=== PATIENT | male | born 1950 | race Caucasian/White ===

== ENCOUNTER → 2017-04-11 | Outpatient (CLI) | payer OTHER ==
[2013-07-26 09:49] VITALS: BP 117/70
[2017-04-11 10:23] LABS: ALANINE AMINOTRANSFERASE 18 Units/L (12-78); ALKALINE PHOSPHATASE 106 Units/L (46-116); ASPARTATE AMINO TRANSFERASE 14 Units/L (15-37); BLOOD UREA NITROGEN 24 mg/dL (7-18); CALCIUM 7.9 mg/dL (8.5-10.1); CARBON DIOXIDE 28.4 mmol/L (21-32); CHLORIDE 104 mmol/L (98-107); COR CA(FOR HYPOALB) 8.7 mg/dL (8.5-10.1); COR NA(FOR HYPERGLY) 142 mmol/L (136-145); CREATININE 1.05 mg/dL (0.70-1.30); GLUCOSE 180 mg/dL (65-99); SODIUM 140 mmol/L (136-145); TOTAL PROTEIN 6.4 g/dL (6.4-8.2); eGFR BLACK RACES > 60 (>60); eGFR NON BLACK RACES > 60 (>60)
[2017-04-11 10:31] LABS: BASOPHILS % (AUTO) 0.7 % (0.2-1.0); EOSINOPHILS # (AUTO) 0.1 x10^3/uL (0.0-0.2); EOSINOPHILS % (AUTO) 0.9 % (0.9-2.9); LYMPHOCYTES # (AUTO) 0.9 X10^3/uL (1.3-2.9); LYMPHOCYTES % (AUTO) 15.2 % (21.0-51.0); MEAN CORPUSCULAR HEMOGLOBIN 33.2 pg (27.0-34.0); MEAN CORPUSCULAR HGB CONC 34.5 g/dL (33.0-35.0); MEAN CORPUSCULAR VOLUME 96.4 fL (80.0-100.0); MEAN PLATELET VOLUME 13.4 fL (7.4-11.0); MONOCYTES # (AUTO) 1.2 x10^3/uL (0.3-0.8); MONOCYTES % (AUTO) 18.9 % (0.0-13.0); NEUTROPHILS % (AUTO) 64.3 % (42.0-75.0); PLATELET COUNT 34 X10^3/uL (150.0-450.0); RED CELL DISTRIBUTION WIDTH 16.8 % (11.6-16.5); WHITE BLOOD COUNT 6.2 X10^3/uL (3.6-10.0)
[2017-04-11 10:47] LABS: HEMOGLOBIN 6.6 g/dL (13.5-18.0)
[2017-04-11 10:48] LABS: HEMATOCRIT 19.3 % (42.0-54.0)
[2017-04-11 11:05] LABS: BAND NEUTROPHILS % 5 % (0-10)
[2017-04-11 11:08] LABS: HYPOCHROMASIA 1+; PLATELET MORPHOLOGY COMMENT ABNORMAL (NORMAL)
[2017-04-11 11:10] LABS: ANISOCYTOSIS 1+; POIKILOCYTOSIS SLIGHT
== END ==
LOC: LAB 09:43
PROVIDERS: ATTEND Internal Medicine Medical Oncology
DX: D46.Z Other myelodysplastic syndromes (principal); Z79.01 Long term (current) use of anticoagulants
CPT/HCPCS: 36415; 80053; 85025; 85610

== ENCOUNTER → 2017-04-14 | Outpatient (CLI) | payer OTHER ==
[2013-07-26 09:49] VITALS: BP 117/70
[2017-04-14 09:53] LABS: BASOPHILS % (AUTO) 0.9 % (0.2-1.0); EOSINOPHILS # (AUTO) 0.1 x10^3/uL (0.0-0.2); EOSINOPHILS % (AUTO) 2.4 % (0.9-2.9); LYMPHOCYTES # (AUTO) 1.1 X10^3/uL (1.3-2.9); LYMPHOCYTES % (AUTO) 19.5 % (21.0-51.0); MEAN CORPUSCULAR HEMOGLOBIN 32.9 pg (27.0-34.0); MEAN CORPUSCULAR HGB CONC 34.8 g/dL (33.0-35.0); MEAN CORPUSCULAR VOLUME 94.7 fL (80.0-100.0); MEAN PLATELET VOLUME 11.4 fL (7.4-11.0); MONOCYTES # (AUTO) 1.5 x10^3/uL (0.3-0.8); MONOCYTES % (AUTO) 27.5 % (0.0-13.0); NEUTROPHILS # (AUTO) 2.8 x10^3/uL (2.2-4.8); NEUTROPHILS % (AUTO) 49.7 % (42.0-75.0); PLATELET COUNT 23 X10^3/uL (150.0-450.0); RED BLOOD COUNT 2.09 X10^6/uL (4.7-6.0); RED CELL DISTRIBUTION WIDTH 16.5 % (11.6-16.5); WHITE BLOOD COUNT 5.6 X10^3/uL (3.6-10.0)
[2017-04-14 10:00] LABS: ALANINE AMINOTRANSFERASE 21 Units/L (12-78); ALBUMIN 3.1 g/dL (3.4-5.0); ALKALINE PHOSPHATASE 96 Units/L (46-116); ASPARTATE AMINO TRANSFERASE 16 Units/L (15-37); BLOOD UREA NITROGEN 26 mg/dL (7-18); CALCIUM 7.9 mg/dL (8.5-10.1); CHLORIDE 106 mmol/L (98-107); COR CA(FOR HYPOALB) 8.6 mg/dL (8.5-10.1); COR NA(FOR HYPERGLY) 143 mmol/L (136-145); CREATININE 1.02 mg/dL (0.70-1.30); GLUCOSE 160 mg/dL (65-99); SODIUM 142 mmol/L (136-145); TOTAL PROTEIN 6.2 g/dL (6.4-8.2); eGFR BLACK RACES > 60 (>60); eGFR NON BLACK RACES > 60 (>60)
[2017-04-14 10:17] LABS: HEMOGLOBIN 6.9 g/dL (13.5-18.0)
[2017-04-14 10:18] LABS: HEMATOCRIT 19.8 % (42.0-54.0)
[2017-04-14 10:19] LABS: ANISOCYTOSIS 1+; BAND NEUTROPHILS % 3 % (0-10); HYPOCHROMASIA 1+; PLATELET MORPHOLOGY COMMENT NORMAL (NORMAL)
== END ==
LOC: LAB 09:23
PROVIDERS: ATTEND Internal Medicine Medical Oncology
DX: D46.Z Other myelodysplastic syndromes (principal)
CPT/HCPCS: 36415; 80053; 85025

== ENCOUNTER → 2017-05-02 | Outpatient (CLI) | payer OTHER ==
[2013-07-26 09:49] VITALS: BP 117/70
[2017-05-02 10:10] LABS: BASOPHILS # (AUTO) 0.1 X10^3/uL (0.0-0.1); EOSINOPHILS # (AUTO) 0.1 x10^3/uL (0.0-0.2); EOSINOPHILS % (AUTO) 0.8 % (0.9-2.9); NEUTROPHILS # (AUTO) 2.3 x10^3/uL (2.2-4.8)
[2017-05-02 10:13] LABS: ALANINE AMINOTRANSFERASE 18 Units/L (12-78); ALBUMIN 2.7 g/dL (3.4-5.0); ALKALINE PHOSPHATASE 105 Units/L (46-116); ASPARTATE AMINO TRANSFERASE 14 Units/L (15-37); BLOOD UREA NITROGEN 26 mg/dL (7-18); CALCIUM 7.3 mg/dL (8.5-10.1); CARBON DIOXIDE 29.2 mmol/L (21-32); CHLORIDE 110 mmol/L (98-107); COR CA(FOR HYPOALB) 8.3 mg/dL (8.5-10.1); COR NA(FOR HYPERGLY) 144 mmol/L (136-145); CREATININE 1.34 mg/dL (0.70-1.30); GLUCOSE 156 mg/dL (65-99); SODIUM 143 mmol/L (136-145); TOTAL PROTEIN 5.6 g/dL (6.4-8.2); eGFR BLACK RACES > 60 (>60); eGFR NON BLACK RACES 56 (>60)
[2017-05-02 10:14] LABS: BASOPHILS % (AUTO) 0.5 % (0.2-1.0); HEMATOCRIT 22.1 % (42.0-54.0); HEMOGLOBIN 7.4 g/dL (13.5-18.0); LYMPHOCYTES # (AUTO) 1.2 X10^3/uL (1.3-2.9); LYMPHOCYTES % (AUTO) 10.6 % (21.0-51.0); MEAN CORPUSCULAR HEMOGLOBIN 31.2 pg (27.0-34.0); MEAN CORPUSCULAR HGB CONC 33.4 g/dL (33.0-35.0); MEAN CORPUSCULAR VOLUME 93.4 fL (80.0-100.0); MEAN PLATELET VOLUME 12.5 fL (7.4-11.0); MONOCYTES # (AUTO) 7.7 x10^3/uL (0.3-0.8); MONOCYTES % (AUTO) 67.7 % (0.0-13.0); NEUTROPHILS % (AUTO) 20.4 % (42.0-75.0); PLATELET COUNT 23 X10^3/uL (150.0-450.0); RED BLOOD COUNT 2.37 X10^6/uL (4.7-6.0); RED CELL DISTRIBUTION WIDTH 16.7 % (11.6-16.5); WHITE BLOOD COUNT 11.4 X10^3/uL (3.6-10.0)
[2017-05-02 12:38] LABS: BAND NEUTROPHILS % 5 % (0-10); GIANT PLATELET FEW
[2017-05-02 12:39] LABS: ANISOCYTOSIS 1+; PLATELET MORPHOLOGY COMMENT ABNORMAL (NORMAL)
== END ==
LOC: LAB 09:41
PROVIDERS: ATTEND Internal Medicine Medical Oncology
DX: D46.Z Other myelodysplastic syndromes (principal)
CPT/HCPCS: 36415; 80053; 85025; 85060

== ENCOUNTER → 2017-05-05 | Outpatient (CLI) | payer OTHER ==
[2013-07-26 09:49] VITALS: BP 117/70
[2017-05-05 08:14] LABS: BASOPHILS # (AUTO) 0.1 X10^3/uL (0.0-0.1); BASOPHILS % (AUTO) 0.6 % (0.2-1.0); EOSINOPHILS # (AUTO) 0.1 x10^3/uL (0.0-0.2); EOSINOPHILS % (AUTO) 0.8 % (0.9-2.9); LYMPHOCYTES # (AUTO) 1.3 X10^3/uL (1.3-2.9); LYMPHOCYTES % (AUTO) 12.6 % (21.0-51.0); MEAN CORPUSCULAR HEMOGLOBIN 32.4 pg (27.0-34.0); MEAN CORPUSCULAR HGB CONC 34.8 g/dL (33.0-35.0); MEAN CORPUSCULAR VOLUME 93.1 fL (80.0-100.0); MEAN PLATELET VOLUME 10.3 fL (7.4-11.0); MONOCYTES # (AUTO) 3.8 x10^3/uL (0.3-0.8); MONOCYTES % (AUTO) 38.2 % (0.0-13.0); NEUTROPHILS # (AUTO) 4.8 x10^3/uL (2.2-4.8); NEUTROPHILS % (AUTO) 47.8 % (42.0-75.0); RED BLOOD COUNT 1.98 X10^6/uL (4.7-6.0); RED CELL DISTRIBUTION WIDTH 16.8 % (11.6-16.5)
[2017-05-05 08:36] LABS: HEMOGLOBIN 6.4 g/dL (13.5-18.0)
[2017-05-05 08:37] LABS: HEMATOCRIT 18.4 % (42.0-54.0)
[2017-05-05 08:38] LABS: BAND NEUTROPHILS % 2 % (0-10); METAMYELOCYTES % 7; PLATELET COUNT 14 X10^3/uL (150.0-450.0)
[2017-05-05 08:40] LABS: ALANINE AMINOTRANSFERASE 15 Units/L (12-78); ALBUMIN 2.6 g/dL (3.4-5.0); ALKALINE PHOSPHATASE 97 Units/L (46-116); ANISOCYTOSIS 1+; ASPARTATE AMINO TRANSFERASE 13 Units/L (15-37); BLOOD UREA NITROGEN 21 mg/dL (7-18); CALCIUM 7.2 mg/dL (8.5-10.1); CARBON DIOXIDE 27.1 mmol/L (21-32); CHLORIDE 109 mmol/L (98-107); COR CA(FOR HYPOALB) 8.3 mg/dL (8.5-10.1); COR NA(FOR HYPERGLY) 145 mmol/L (136-145); CREATININE 1.21 mg/dL (0.70-1.30); GLUCOSE 141 mg/dL (65-99); HYPOCHROMASIA 1+; PLATELET MORPHOLOGY COMMENT NORMAL (NORMAL); POIKILOCYTOSIS SLIGHT; SODIUM 144 mmol/L (136-145); TOTAL PROTEIN 5.5 g/dL (6.4-8.2); eGFR BLACK RACES > 60 (>60); eGFR NON BLACK RACES > 60 (>60)
== END ==
LOC: LAB 07:41
PROVIDERS: ATTEND Internal Medicine Medical Oncology
DX: D46.Z Other myelodysplastic syndromes (principal)
CPT/HCPCS: 36415; 80053; 85025

== ENCOUNTER → 2017-05-09 | Outpatient (CLI) | payer OTHER ==
[2013-07-26 09:49] VITALS: BP 117/70
[2017-05-09 10:15] LABS: BASOPHILS % (AUTO) 0.4 % (0.2-1.0); EOSINOPHILS % (AUTO) 0.4 % (0.9-2.9); LYMPHOCYTES # (AUTO) 0.8 X10^3/uL (1.3-2.9); LYMPHOCYTES % (AUTO) 8.7 % (21.0-51.0); MEAN CORPUSCULAR HEMOGLOBIN 31.9 pg (27.0-34.0); MEAN CORPUSCULAR VOLUME 91.4 fL (80.0-100.0); MEAN PLATELET VOLUME 10.9 fL (7.4-11.0); MONOCYTES # (AUTO) 1.5 x10^3/uL (0.3-0.8); NEUTROPHILS # (AUTO) 6.4 x10^3/uL (2.2-4.8); NEUTROPHILS % (AUTO) 73.5 % (42.0-75.0); RED BLOOD COUNT 2.12 X10^6/uL (4.7-6.0); RED CELL DISTRIBUTION WIDTH 15.9 % (11.6-16.5); WHITE BLOOD COUNT 8.8 X10^3/uL (3.6-10.0)
[2017-05-09 10:23] LABS: ALANINE AMINOTRANSFERASE 11 Units/L (12-78); ALBUMIN 2.7 g/dL (3.4-5.0); ALKALINE PHOSPHATASE 84 Units/L (46-116); ASPARTATE AMINO TRANSFERASE 10 Units/L (15-37); BLOOD UREA NITROGEN 23 mg/dL (7-18); CALCIUM 7.9 mg/dL (8.5-10.1); CARBON DIOXIDE 26.7 mmol/L (21-32); CHLORIDE 109 mmol/L (98-107); COR CA(FOR HYPOALB) 8.9 mg/dL (8.5-10.1); COR NA(FOR HYPERGLY) 144 mmol/L (136-145); CREATININE 1.14 mg/dL (0.70-1.30); GLUCOSE 171 mg/dL (65-99); SODIUM 142 mmol/L (136-145); TOTAL PROTEIN 5.4 g/dL (6.4-8.2); eGFR BLACK RACES > 60 (>60); eGFR NON BLACK RACES > 60 (>60)
[2017-05-09 10:57] LABS: HEMATOCRIT 19.4 % (42.0-54.0)
[2017-05-09 10:58] LABS: PLATELET COUNT 10 X10^3/uL (150.0-450.0)
[2017-05-09 10:59] LABS: HEMOGLOBIN 6.8 g/dL (13.5-18.0)
[2017-05-09 11:04] LABS: BAND NEUTROPHILS % 7 % (0-10)
[2017-05-09 11:05] LABS: METAMYELOCYTES % 8; PLATELET MORPHOLOGY COMMENT NORMAL (NORMAL)
[2017-05-09 11:06] LABS: ANISOCYTOSIS 1+; HYPOCHROMASIA 2+
== END ==
LOC: LAB 09:38
PROVIDERS: ATTEND Internal Medicine Medical Oncology
DX: D46.Z Other myelodysplastic syndromes (principal)
CPT/HCPCS: 36415; 80053; 82248; 85025

== ENCOUNTER → 2017-05-12 | Outpatient (CLI) | payer OTHER ==
[2013-07-26 09:49] VITALS: BP 117/70
[2017-05-12 08:25] LABS: LYMPHOCYTES # (AUTO) 2.2 X10^3/uL (1.3-2.9); NEUTROPHILS # (AUTO) 1.4 x10^3/uL (2.2-4.8); RED BLOOD COUNT 1.34 X10^6/uL (4.7-6.0); WHITE BLOOD COUNT 4.7 X10^3/uL (3.6-10.0)
[2017-05-12 08:30] LABS: BASOPHILS % (AUTO) 0.3 % (0.2-1.0); EOSINOPHILS % (AUTO) 0.3 % (0.9-2.9); LYMPHOCYTES % (AUTO) 47.7 % (21.0-51.0); MEAN CORPUSCULAR HEMOGLOBIN 32.6 pg (27.0-34.0); MEAN CORPUSCULAR HGB CONC 35.3 g/dL (33.0-35.0); MEAN CORPUSCULAR VOLUME 92.4 fL (80.0-100.0); MONOCYTES % (AUTO) 22.5 % (0.0-13.0); NEUTROPHILS % (AUTO) 29.2 % (42.0-75.0)
[2017-05-12 08:38] LABS: ALANINE AMINOTRANSFERASE 13 Units/L (12-78); ALBUMIN 2.6 g/dL (3.4-5.0); ALKALINE PHOSPHATASE 68 Units/L (46-116); ASPARTATE AMINO TRANSFERASE 14 Units/L (15-37); BLOOD UREA NITROGEN 37 mg/dL (7-18); CALCIUM 7.6 mg/dL (8.5-10.1); CARBON DIOXIDE 24.1 mmol/L (21-32); CHLORIDE 109 mmol/L (98-107); COR CA(FOR HYPOALB) 8.7 mg/dL (8.5-10.1); COR NA(FOR HYPERGLY) 140 mmol/L (136-145); CREATININE 1.13 mg/dL (0.70-1.30); SODIUM 140 mmol/L (136-145); TOTAL PROTEIN 5.2 g/dL (6.4-8.2); eGFR BLACK RACES > 60 (>60); eGFR NON BLACK RACES > 60 (>60)
[2017-05-12 08:50] LABS: BAND NEUTROPHILS % 12 % (0-10)
[2017-05-12 08:51] LABS: METAMYELOCYTES % 2; PLATELET MORPHOLOGY COMMENT ABNORMAL (NORMAL)
[2017-05-12 08:53] LABS: ANISOCYTOSIS 1+; HYPOCHROMASIA 1+; POIKILOCYTOSIS SLIGHT
[2017-05-12 09:03] LABS: HEMATOCRIT 12.4 % (42.0-54.0); HEMOGLOBIN 4.4 g/dL (13.5-18.0); PLATELET COUNT 4 X10^3/uL (150.0-450.0)
== END ==
LOC: LAB 07:51
PROVIDERS: ATTEND Internal Medicine Medical Oncology
DX: D46.9 Myelodysplastic syndrome, unspecified (principal); D64.89 Other specified anemias; E80.6 Other disorders of bilirubin metabolism
CPT/HCPCS: 36415; 80053; 85025

== ENCOUNTER → 2017-05-24 | Outpatient (CLI) | payer OTHER ==
[2013-07-26 09:49] VITALS: BP 117/70
[2017-05-24 10:23] LABS: BASOPHILS # (AUTO) 0.3 X10^3/uL (0.0-0.1); BASOPHILS % (AUTO) 0.6 % (0.2-1.0); EOSINOPHILS # (AUTO) 0.1 x10^3/uL (0.0-0.2); EOSINOPHILS % (AUTO) 0.2 % (0.9-2.9); HEMATOCRIT 25.5 % (42.0-54.0); HEMOGLOBIN 8.3 g/dL (13.5-18.0); LYMPHOCYTES # (AUTO) 3.1 X10^3/uL (1.3-2.9); LYMPHOCYTES % (AUTO) 5.6 % (21.0-51.0); MEAN CORPUSCULAR HEMOGLOBIN 30.3 pg (27.0-34.0); MEAN CORPUSCULAR HGB CONC 32.6 g/dL (33.0-35.0); MEAN PLATELET VOLUME 11.4 fL (7.4-11.0); MONOCYTES # (AUTO) 41.4 x10^3/uL (0.3-0.8); MONOCYTES % (AUTO) 74.6 % (0.0-13.0); NEUTROPHILS # (AUTO) 10.5 x10^3/uL (2.2-4.8); PLATELET COUNT 126 X10^3/uL (150.0-450.0); RED BLOOD COUNT 2.74 X10^6/uL (4.7-6.0); RED CELL DISTRIBUTION WIDTH 17.9 % (11.6-16.5)
[2017-05-24 10:28] LABS: ALANINE AMINOTRANSFERASE 23 Units/L (12-78); ALBUMIN 2.7 g/dL (3.4-5.0); ALKALINE PHOSPHATASE 117 Units/L (46-116); ASPARTATE AMINO TRANSFERASE 11 Units/L (15-37); BLOOD UREA NITROGEN 22 mg/dL (7-18); CALCIUM 8.2 mg/dL (8.5-10.1); CARBON DIOXIDE 30.6 mmol/L (21-32); CHLORIDE 107 mmol/L (98-107); COR CA(FOR HYPOALB) 9.2 mg/dL (8.5-10.1); CREATININE 1.56 mg/dL (0.70-1.30); SODIUM 141 mmol/L (136-145); TOTAL PROTEIN 5.5 g/dL (6.4-8.2); eGFR BLACK RACES 57 (>60); eGFR NON BLACK RACES 47 (>60)
[2017-05-24 10:32] LABS: WHITE BLOOD COUNT 55.4 X10^3/uL (3.6-10.0)
[2017-05-24 10:39] LABS: BAND NEUTROPHILS % 10 % (0-10)
[2017-05-24 10:42] LABS: HYPOCHROMASIA 1+; PLATELET MORPHOLOGY COMMENT NORMAL (NORMAL); POIKILOCYTOSIS SLIGHT
[2017-05-24 10:45] LABS: ANISOCYTOSIS SLIGHT
== END ==
LOC: LAB 09:41
PROVIDERS: ATTEND Internal Medicine Medical Oncology
DX: D64.89 Other specified anemias (principal)
CPT/HCPCS: 36415; 80053; 85025

== ENCOUNTER → 2017-05-30 | Outpatient (CLI) | payer OTHER ==
[2013-07-26 09:49] VITALS: BP 117/70
== END ==
LOC: LAB 10:12
PROVIDERS: ATTEND Internal Medicine Medical Oncology
DX: D64.89 Other specified anemias (principal); Z79.01 Long term (current) use of anticoagulants
CPT/HCPCS: 36415; 85610

== ENCOUNTER → 2017-06-02 | Outpatient (CLI) | payer OTHER ==
[2013-07-26 09:49] VITALS: BP 117/70
[2017-06-02 11:24] LABS: ALANINE AMINOTRANSFERASE 23 Units/L (12-78); ALBUMIN 2.8 g/dL (3.4-5.0); ALKALINE PHOSPHATASE 128 Units/L (46-116); ASPARTATE AMINO TRANSFERASE 14 Units/L (15-37); BLOOD UREA NITROGEN 18 mg/dL (7-18); CALCIUM 8.6 mg/dL (8.5-10.1); CARBON DIOXIDE 27.6 mmol/L (21-32); CHLORIDE 106 mmol/L (98-107); COR CA(FOR HYPOALB) 9.6 mg/dL (8.5-10.1); CREATININE 1.15 mg/dL (0.70-1.30); SODIUM 139 mmol/L (136-145); TOTAL PROTEIN 5.9 g/dL (6.4-8.2); eGFR BLACK RACES > 60 (>60); eGFR NON BLACK RACES > 60 (>60)
[2017-06-02 11:49] LABS: BASOPHILS # (AUTO) 0.2 X10^3/uL (0.0-0.1); BASOPHILS % (AUTO) 0.5 % (0.2-1.0); EOSINOPHILS # (AUTO) 0.1 x10^3/uL (0.0-0.2); EOSINOPHILS % (AUTO) 0.2 % (0.9-2.9); LYMPHOCYTES # (AUTO) 1.7 X10^3/uL (1.3-2.9); LYMPHOCYTES % (AUTO) 5.7 % (21.0-51.0); MEAN CORPUSCULAR HEMOGLOBIN 30.6 pg (27.0-34.0); MEAN CORPUSCULAR HGB CONC 32.7 g/dL (33.0-35.0); MEAN CORPUSCULAR VOLUME 93.6 fL (80.0-100.0); MEAN PLATELET VOLUME 12.6 fL (7.4-11.0); MONOCYTES # (AUTO) 8.9 x10^3/uL (0.3-0.8); MONOCYTES % (AUTO) 29.2 % (0.0-13.0); NEUTROPHILS # (AUTO) 19.6 x10^3/uL (2.2-4.8); NEUTROPHILS % (AUTO) 64.4 % (42.0-75.0); PLATELET COUNT 39 X10^3/uL (150.0-450.0); RED BLOOD COUNT 2.25 X10^6/uL (4.7-6.0); RED CELL DISTRIBUTION WIDTH 17.6 % (11.6-16.5)
[2017-06-02 11:56] LABS: WHITE BLOOD COUNT 30.4 X10^3/uL (3.6-10.0)
[2017-06-02 11:57] LABS: HEMOGLOBIN 6.9 g/dL (13.5-18.0)
[2017-06-02 12:04] LABS: BAND NEUTROPHILS % 11 % (0-10)
[2017-06-02 12:05] LABS: HYPOCHROMASIA 1+; METAMYELOCYTES % 9; PLATELET MORPHOLOGY COMMENT NORMAL (NORMAL); POIKILOCYTOSIS 1+
[2017-06-02 12:06] LABS: ANISOCYTOSIS 2+
== END ==
LOC: LAB 10:56
PROVIDERS: ATTEND Internal Medicine Medical Oncology
DX: D46.9 Myelodysplastic syndrome, unspecified (principal)
CPT/HCPCS: 36415; 80053; 85025

== ENCOUNTER → 2017-06-06 | Outpatient (CLI) | payer OTHER ==
[2013-07-26 09:49] VITALS: BP 117/70
[2017-06-06 10:57] LABS: BASOPHILS # (AUTO) 0.1 X10^3/uL (0.0-0.1); HEMATOCRIT 23.4 % (42.0-54.0); LYMPHOCYTES # (AUTO) 0.9 X10^3/uL (1.3-2.9); RED BLOOD COUNT 2.57 X10^6/uL (4.7-6.0)
[2017-06-06 11:02] LABS: BASOPHILS % (AUTO) 1.1 % (0.2-1.0); EOSINOPHILS % (AUTO) 0.5 % (0.9-2.9); LYMPHOCYTES % (AUTO) 9.3 % (21.0-51.0); MEAN CORPUSCULAR HEMOGLOBIN 31.2 pg (27.0-34.0); MEAN CORPUSCULAR HGB CONC 34.1 g/dL (33.0-35.0); MEAN CORPUSCULAR VOLUME 91.3 fL (80.0-100.0); MEAN PLATELET VOLUME 12.2 fL (7.4-11.0); MONOCYTES # (AUTO) 2.3 x10^3/uL (0.3-0.8); MONOCYTES % (AUTO) 23.6 % (0.0-13.0); NEUTROPHILS # (AUTO) 6.4 x10^3/uL (2.2-4.8); NEUTROPHILS % (AUTO) 65.5 % (42.0-75.0); PLATELET COUNT 43 X10^3/uL (150.0-450.0); RED CELL DISTRIBUTION WIDTH 17.9 % (11.6-16.5); WHITE BLOOD COUNT 9.7 X10^3/uL (3.6-10.0)
[2017-06-06 11:05] LABS: ALANINE AMINOTRANSFERASE 19 Units/L (12-78); ALKALINE PHOSPHATASE 113 Units/L (46-116); ASPARTATE AMINO TRANSFERASE 12 Units/L (15-37); BLOOD UREA NITROGEN 27 mg/dL (7-18); CALCIUM 8.6 mg/dL (8.5-10.1); CARBON DIOXIDE 25.1 mmol/L (21-32); CHLORIDE 104 mmol/L (98-107); COR CA(FOR HYPOALB) 9.4 mg/dL (8.5-10.1); COR NA(FOR HYPERGLY) 140 mmol/L (136-145); CREATININE 1.22 mg/dL (0.70-1.30); SODIUM 138 mmol/L (136-145); TOTAL PROTEIN 5.9 g/dL (6.4-8.2); eGFR BLACK RACES > 60 (>60); eGFR NON BLACK RACES > 60 (>60)
[2017-06-06 11:12] LABS: BAND NEUTROPHILS % 2 % (0-10)
[2017-06-06 11:13] LABS: METAMYELOCYTES % 7; PLATELET MORPHOLOGY COMMENT NORMAL (NORMAL)
== END ==
LOC: LAB 10:29
PROVIDERS: ATTEND Internal Medicine Medical Oncology
DX: D46.9 Myelodysplastic syndrome, unspecified (principal); Z79.01 Long term (current) use of anticoagulants
CPT/HCPCS: 36415; 80053; 85025; 85610

== ENCOUNTER → 2017-06-27 | Outpatient (CLI) | payer OTHER ==
[2013-07-26 09:49] VITALS: BP 117/70
[2017-06-27 11:01] LABS: BASOPHILS # (AUTO) 0.4 X10^3/uL (0.0-0.1); BASOPHILS % (AUTO) 0.5 % (0.2-1.0); EOSINOPHILS # (AUTO) 0.4 x10^3/uL (0.0-0.2); EOSINOPHILS % (AUTO) 0.6 % (0.9-2.9); LYMPHOCYTES # (AUTO) 2.3 X10^3/uL (1.3-2.9); MEAN CORPUSCULAR HEMOGLOBIN 28.3 pg (27.0-34.0); MEAN CORPUSCULAR HGB CONC 32.3 g/dL (33.0-35.0); MEAN CORPUSCULAR VOLUME 87.7 fL (80.0-100.0); MEAN PLATELET VOLUME 11.4 fL (7.4-11.0); MONOCYTES # (AUTO) 20.7 x10^3/uL (0.3-0.8); NEUTROPHILS # (AUTO) 52.8 x10^3/uL (2.2-4.8); NEUTROPHILS % (AUTO) 68.9 % (42.0-75.0); PLATELET COUNT 25 X10^3/uL (150.0-450.0); RED BLOOD COUNT 2.12 X10^6/uL (4.7-6.0); RED CELL DISTRIBUTION WIDTH 17.4 % (11.6-16.5)
[2017-06-27 11:03] LABS: ALANINE AMINOTRANSFERASE 16 Units/L (12-78); ALBUMIN 3.1 g/dL (3.4-5.0); ALKALINE PHOSPHATASE 103 Units/L (46-116); ASPARTATE AMINO TRANSFERASE 20 Units/L (15-37); BLOOD UREA NITROGEN 26 mg/dL (7-18); CALCIUM 8.1 mg/dL (8.5-10.1); CARBON DIOXIDE 25.7 mmol/L (21-32); CHLORIDE 107 mmol/L (98-107); COR CA(FOR HYPOALB) 8.8 mg/dL (8.5-10.1); COR NA(FOR HYPERGLY) 143 mmol/L (136-145); CREATININE 1.14 mg/dL (0.70-1.30); SODIUM 142 mmol/L (136-145); eGFR BLACK RACES > 60 (>60); eGFR NON BLACK RACES > 60 (>60)
[2017-06-27 11:10] LABS: WHITE BLOOD COUNT 76.5 X10^3/uL (3.6-10.0)
[2017-06-27 11:11] LABS: HEMATOCRIT 18.6 % (42.0-54.0)
[2017-06-27 11:23] LABS: BAND NEUTROPHILS % 8 % (0-10)
[2017-06-27 11:24] LABS: ANISOCYTOSIS 1+; HYPOCHROMASIA 1+; METAMYELOCYTES % 10; MYELOCYTES % 8; PLATELET MORPHOLOGY COMMENT NORMAL (NORMAL); PROMYELOCYTES % 8; SMUDGE CELLS NOTED
== END ==
LOC: LAB 09:59
PROVIDERS: ATTEND Internal Medicine Medical Oncology
DX: D46.9 Myelodysplastic syndrome, unspecified (principal)
CPT/HCPCS: 36415; 80053; 85025

== ENCOUNTER → 2017-07-04 | Outpatient (CLI) | payer OTHER ==
[2013-07-26 09:49] VITALS: BP 117/70
[2017-07-04 12:42] LABS: ALANINE AMINOTRANSFERASE 15 Units/L (12-78); ALBUMIN 3.1 g/dL (3.4-5.0); ALKALINE PHOSPHATASE 122 Units/L (46-116); ASPARTATE AMINO TRANSFERASE 21 Units/L (15-37); BLOOD UREA NITROGEN 32 mg/dL (7-18); CALCIUM 8.2 mg/dL (8.5-10.1); CARBON DIOXIDE 24.1 mmol/L (21-32); CHLORIDE 108 mmol/L (98-107); COR CA(FOR HYPOALB) 8.9 mg/dL (8.5-10.1); COR NA(FOR HYPERGLY) 144 mmol/L (136-145); CREATININE 1.31 mg/dL (0.70-1.30); SODIUM 143 mmol/L (136-145); TOTAL PROTEIN 6.3 g/dL (6.4-8.2); eGFR BLACK RACES > 60 (>60); eGFR NON BLACK RACES 58 (>60)
[2017-07-04 13:00] LABS: BASOPHILS # (AUTO) 0.3 X10^3/uL (0.0-0.1); BASOPHILS % (AUTO) 0.4 % (0.2-1.0); EOSINOPHILS # (AUTO) 0.5 x10^3/uL (0.0-0.2); EOSINOPHILS % (AUTO) 0.7 % (0.9-2.9); LYMPHOCYTES # (AUTO) 3.3 X10^3/uL (1.3-2.9); LYMPHOCYTES % (AUTO) 4.5 % (21.0-51.0); MEAN CORPUSCULAR HEMOGLOBIN 28.7 pg (27.0-34.0); MEAN CORPUSCULAR HGB CONC 31.9 g/dL (33.0-35.0); MEAN CORPUSCULAR VOLUME 89.9 fL (80.0-100.0); MEAN PLATELET VOLUME 12.7 fL (7.4-11.0); MONOCYTES # (AUTO) 27.3 x10^3/uL (0.3-0.8); MONOCYTES % (AUTO) 36.6 % (0.0-13.0); NEUTROPHILS % (AUTO) 57.8 % (42.0-75.0); PLATELET COUNT 65 X10^3/uL (150.0-450.0); RED BLOOD COUNT 2.06 X10^6/uL (4.7-6.0); RED CELL DISTRIBUTION WIDTH 17.3 % (11.6-16.5)
[2017-07-04 13:14] LABS: WHITE BLOOD COUNT 74.4 X10^3/uL (3.6-10.0)
[2017-07-04 13:15] LABS: HEMATOCRIT 18.5 % (42.0-54.0); HEMOGLOBIN 5.9 g/dL (13.5-18.0)
[2017-07-04 13:16] LABS: BAND NEUTROPHILS % 11 % (0-10); METAMYELOCYTES % 14; MYELOCYTES % 11; SMUDGE CELLS FEW
[2017-07-04 13:17] LABS: ANISOCYTOSIS 2+; HYPOCHROMASIA 1+; PLATELET MORPHOLOGY COMMENT NORMAL (NORMAL); POIKILOCYTOSIS 1+
== END ==
LOC: LAB 11:55
PROVIDERS: ATTEND Internal Medicine Medical Oncology
DX: D46.Z Other myelodysplastic syndromes (principal)
CPT/HCPCS: 36415; 80053; 85025

== ENCOUNTER → 2017-07-07 | Outpatient (CLI) | payer OTHER ==
[2013-07-26 09:49] VITALS: BP 117/70
[2017-07-07 10:40] LABS: ALANINE AMINOTRANSFERASE 15 Units/L (12-78); ALKALINE PHOSPHATASE 107 Units/L (46-116); ASPARTATE AMINO TRANSFERASE 17 Units/L (15-37); BLOOD UREA NITROGEN 28 mg/dL (7-18); CALCIUM 8.1 mg/dL (8.5-10.1); CARBON DIOXIDE 24.2 mmol/L (21-32); CHLORIDE 109 mmol/L (98-107); COR CA(FOR HYPOALB) 8.9 mg/dL (8.5-10.1); CREATININE 1.26 mg/dL (0.70-1.30); DIGOXIN 1.47 ng/mL (0.9-2); SODIUM 140 mmol/L (136-145); TOTAL PROTEIN 6.2 g/dL (6.4-8.2); eGFR BLACK RACES > 60 (>60); eGFR NON BLACK RACES > 60 (>60)
[2017-07-07 10:41] LABS: BASOPHILS # (AUTO) 0.3 X10^3/uL (0.0-0.1); BASOPHILS % (AUTO) 0.4 % (0.2-1.0); EOSINOPHILS # (AUTO) 0.5 x10^3/uL (0.0-0.2); EOSINOPHILS % (AUTO) 0.7 % (0.9-2.9); HEMATOCRIT 20.1 % (42.0-54.0); LYMPHOCYTES # (AUTO) 3.7 X10^3/uL (1.3-2.9); LYMPHOCYTES % (AUTO) 5.4 % (21.0-51.0); MEAN CORPUSCULAR HEMOGLOBIN 28.8 pg (27.0-34.0); MEAN CORPUSCULAR VOLUME 87.2 fL (80.0-100.0); MEAN PLATELET VOLUME 13.2 fL (7.4-11.0); MONOCYTES # (AUTO) 35.1 x10^3/uL (0.3-0.8); MONOCYTES % (AUTO) 51.3 % (0.0-13.0); NEUTROPHILS # (AUTO) 28.9 x10^3/uL (2.2-4.8); NEUTROPHILS % (AUTO) 42.2 % (42.0-75.0); PLATELET COUNT 93 X10^3/uL (150.0-450.0); RED BLOOD COUNT 2.31 X10^6/uL (4.7-6.0); RED CELL DISTRIBUTION WIDTH 16.5 % (11.6-16.5)
[2017-07-07 10:58] LABS: WHITE BLOOD COUNT 68.4 X10^3/uL (3.6-10.0)
[2017-07-07 10:59] LABS: HEMOGLOBIN 6.6 g/dL (13.5-18.0)
[2017-07-07 11:12] LABS: BAND NEUTROPHILS % 11 % (0-10)
[2017-07-07 11:13] LABS: ANISOCYTOSIS 1+; HYPOCHROMASIA 1+; METAMYELOCYTES % 18; MYELOCYTES % 9; PLATELET MORPHOLOGY COMMENT NORMAL (NORMAL)
== END ==
LOC: LAB 09:54
PROVIDERS: ATTEND Internal Medicine Medical Oncology
DX: I48.91 Unspecified atrial fibrillation (principal); D64.9 Anemia, unspecified
CPT/HCPCS: 36415; 80053; 80162; 85025

== ENCOUNTER → 2017-07-18 | Outpatient (CLI) | payer OTHER ==
[2013-07-26 09:49] VITALS: BP 117/70
[2017-07-18 09:38] LABS: BASOPHILS # (AUTO) 0.4 X10^3/uL (0.0-0.1); BASOPHILS % (AUTO) 0.8 % (0.2-1.0); EOSINOPHILS # (AUTO) 0.2 x10^3/uL (0.0-0.2); EOSINOPHILS % (AUTO) 0.4 % (0.9-2.9); HEMATOCRIT 23.8 % (42.0-54.0); HEMOGLOBIN 7.8 g/dL (13.5-18.0); LYMPHOCYTES # (AUTO) 2.3 X10^3/uL (1.3-2.9); LYMPHOCYTES % (AUTO) 4.7 % (21.0-51.0); MEAN CORPUSCULAR HEMOGLOBIN 29.1 pg (27.0-34.0); MEAN CORPUSCULAR HGB CONC 32.8 g/dL (33.0-35.0); MEAN CORPUSCULAR VOLUME 88.8 fL (80.0-100.0); MEAN PLATELET VOLUME 12.2 fL (7.4-11.0); MONOCYTES # (AUTO) 24.1 x10^3/uL (0.3-0.8); MONOCYTES % (AUTO) 49.6 % (0.0-13.0); NEUTROPHILS # (AUTO) 21.6 x10^3/uL (2.2-4.8); NEUTROPHILS % (AUTO) 44.5 % (42.0-75.0); PLATELET COUNT 110 X10^3/uL (150.0-450.0); RED BLOOD COUNT 2.69 X10^6/uL (4.7-6.0); RED CELL DISTRIBUTION WIDTH 17.4 % (11.6-16.5)
[2017-07-18 09:43] LABS: ALANINE AMINOTRANSFERASE 13 Units/L (12-78); ALBUMIN 2.9 g/dL (3.4-5.0); ALKALINE PHOSPHATASE 86 Units/L (46-116); ASPARTATE AMINO TRANSFERASE 14 Units/L (15-37); BLOOD UREA NITROGEN 28 mg/dL (7-18); CALCIUM 8.3 mg/dL (8.5-10.1); CHLORIDE 109 mmol/L (98-107); COR CA(FOR HYPOALB) 9.2 mg/dL (8.5-10.1); COR NA(FOR HYPERGLY) 143 mmol/L (136-145); CREATININE 1.43 mg/dL (0.70-1.30); SODIUM 142 mmol/L (136-145); TOTAL PROTEIN 6.1 g/dL (6.4-8.2); eGFR BLACK RACES > 60 (>60); eGFR NON BLACK RACES 52 (>60)
[2017-07-18 10:05] LABS: WHITE BLOOD COUNT 48.5 X10^3/uL (3.6-10.0)
[2017-07-18 10:06] LABS: ANISOCYTOSIS 1+; BAND NEUTROPHILS % 7 % (0-10); HYPOCHROMASIA SLIGHT; METAMYELOCYTES % 12; MYELOCYTES % 5; PLATELET MORPHOLOGY COMMENT NORMAL (NORMAL)
== END ==
LOC: LAB 09:06
PROVIDERS: ATTEND Internal Medicine Medical Oncology
DX: D46.Z Other myelodysplastic syndromes (principal)
CPT/HCPCS: 36415; 80053; 85025

== ENCOUNTER → 2017-07-25 | Outpatient (CLI) | payer OTHER ==
[2013-07-26 09:49] VITALS: BP 117/70
[2017-07-25 11:17] LABS: BASOPHILS # (AUTO) 0.3 X10^3/uL (0.0-0.1); EOSINOPHILS # (AUTO) 0.2 x10^3/uL (0.0-0.2); EOSINOPHILS % (AUTO) 0.7 % (0.9-2.9); HEMATOCRIT 20.5 % (42.0-54.0); LYMPHOCYTES # (AUTO) 2.5 X10^3/uL (1.3-2.9); LYMPHOCYTES % (AUTO) 6.9 % (21.0-51.0); MEAN CORPUSCULAR HEMOGLOBIN 29.1 pg (27.0-34.0); MEAN CORPUSCULAR HGB CONC 33.3 g/dL (33.0-35.0); MEAN CORPUSCULAR VOLUME 87.5 fL (80.0-100.0); MEAN PLATELET VOLUME 9.2 fL (7.4-11.0); MONOCYTES # (AUTO) 13.9 x10^3/uL (0.3-0.8); MONOCYTES % (AUTO) 39.2 % (0.0-13.0); NEUTROPHILS # (AUTO) 18.5 x10^3/uL (2.2-4.8); NEUTROPHILS % (AUTO) 52.2 % (42.0-75.0); RED BLOOD COUNT 2.34 X10^6/uL (4.7-6.0); RED CELL DISTRIBUTION WIDTH 18.4 % (11.6-16.5)
[2017-07-25 11:34] LABS: BAND NEUTROPHILS % 10 % (0-10)
[2017-07-25 11:35] LABS: ANISOCYTOSIS 1+; HYPOCHROMASIA 1+; METAMYELOCYTES % 8; PLATELET MORPHOLOGY COMMENT NORMAL (NORMAL)
[2017-07-25 11:38] LABS: HEMOGLOBIN 6.8 g/dL (13.5-18.0); PLATELET COUNT 16 X10^3/uL (150.0-450.0); WHITE BLOOD COUNT 35.4 X10^3/uL (3.6-10.0)
[2017-07-25 22:00] LABS: ALANINE AMINOTRANSFERASE 11 Units/L (12-78); ALKALINE PHOSPHATASE 85 Units/L (46-116); ASPARTATE AMINO TRANSFERASE 17 Units/L (15-37); BLOOD UREA NITROGEN 26 mg/dL (7-18); CALCIUM 8.1 mg/dL (8.5-10.1); CARBON DIOXIDE 24.8 mmol/L (21-32); CHLORIDE 108 mmol/L (98-107); COR CA(FOR HYPOALB) 8.9 mg/dL (8.5-10.1); COR NA(FOR HYPERGLY) 141 mmol/L (136-145); CREATININE 1.32 mg/dL (0.70-1.30); SODIUM 141 mmol/L (136-145); TOTAL PROTEIN 6.1 g/dL (6.4-8.2); eGFR BLACK RACES > 60 (>60); eGFR NON BLACK RACES 57 (>60)
== END ==
LOC: LAB 10:45
PROVIDERS: ATTEND Internal Medicine Medical Oncology
DX: D46.Z Other myelodysplastic syndromes (principal); Z79.01 Long term (current) use of anticoagulants
CPT/HCPCS: 36415; 80053; 85025; 85610

== ENCOUNTER → 2017-08-01 | Outpatient (CLI) | payer OTHER ==
[2013-07-26 09:49] VITALS: BP 117/70
[2017-08-01 09:52] LABS: BASOPHILS # (AUTO) 0.2 X10^3/uL (0.0-0.1); BASOPHILS % (AUTO) 0.4 % (0.2-1.0); EOSINOPHILS # (AUTO) 0.1 x10^3/uL (0.0-0.2); EOSINOPHILS % (AUTO) 0.3 % (0.9-2.9); HEMATOCRIT 20.7 % (42.0-54.0); LYMPHOCYTES # (AUTO) 3.9 X10^3/uL (1.3-2.9); LYMPHOCYTES % (AUTO) 9.5 % (21.0-51.0); MEAN CORPUSCULAR HEMOGLOBIN 29.1 pg (27.0-34.0); MEAN CORPUSCULAR HGB CONC 32.5 g/dL (33.0-35.0); MEAN CORPUSCULAR VOLUME 89.6 fL (80.0-100.0); MEAN PLATELET VOLUME 11.5 fL (7.4-11.0); MONOCYTES % (AUTO) 58.9 % (0.0-13.0); NEUTROPHILS # (AUTO) 12.6 x10^3/uL (2.2-4.8); NEUTROPHILS % (AUTO) 30.9 % (42.0-75.0); PLATELET COUNT 348 X10^3/uL (150.0-450.0); RED BLOOD COUNT 2.32 X10^6/uL (4.7-6.0); RED CELL DISTRIBUTION WIDTH 18.2 % (11.6-16.5)
[2017-08-01 10:12] LABS: WHITE BLOOD COUNT 40.7 X10^3/uL (3.6-10.0)
[2017-08-01 10:13] LABS: HEMOGLOBIN 6.7 g/dL (13.5-18.0)
[2017-08-01 10:17] LABS: BAND NEUTROPHILS % 9 % (0-10); METAMYELOCYTES % 8; MYELOCYTES % 4; PROMYELOCYTES % 2
[2017-08-01 10:18] LABS: ANISOCYTOSIS 1+; HYPOCHROMASIA 1+; PLATELET MORPHOLOGY COMMENT NORMAL (NORMAL)
== END ==
LOC: LAB 09:15
PROVIDERS: ATTEND Internal Medicine Medical Oncology
DX: D64.9 Anemia, unspecified (principal); Z79.01 Long term (current) use of anticoagulants; D46.Z Other myelodysplastic syndromes
CPT/HCPCS: 36415; 85025; 85610

== ENCOUNTER → 2017-08-15 | Outpatient (CLI) | payer OTHER ==
[2013-07-26 09:49] VITALS: BP 117/70
[2017-08-15 11:23] LABS: BASOPHILS # (AUTO) 0.5 X10^3/uL (0.0-0.1); BASOPHILS % (AUTO) 0.8 % (0.2-1.0); EOSINOPHILS # (AUTO) 0.5 x10^3/uL (0.0-0.2); EOSINOPHILS % (AUTO) 0.8 % (0.9-2.9); HEMATOCRIT 22.5 % (42.0-54.0); HEMOGLOBIN 7.5 g/dL (13.5-18.0); LYMPHOCYTES # (AUTO) 2.6 X10^3/uL (1.3-2.9); LYMPHOCYTES % (AUTO) 4.3 % (21.0-51.0); MEAN CORPUSCULAR HEMOGLOBIN 30.3 pg (27.0-34.0); MEAN CORPUSCULAR HGB CONC 33.1 g/dL (33.0-35.0); MEAN CORPUSCULAR VOLUME 91.6 fL (80.0-100.0); MEAN PLATELET VOLUME 10.9 fL (7.4-11.0); MONOCYTES # (AUTO) 11.2 x10^3/uL (0.3-0.8); MONOCYTES % (AUTO) 18.8 % (0.0-13.0); NEUTROPHILS # (AUTO) 44.8 x10^3/uL (2.2-4.8); NEUTROPHILS % (AUTO) 75.3 % (42.0-75.0); PLATELET COUNT 45 X10^3/uL (150.0-450.0); RED BLOOD COUNT 2.46 X10^6/uL (4.7-6.0); RED CELL DISTRIBUTION WIDTH 16.9 % (11.6-16.5)
[2017-08-15 11:35] LABS: ALANINE AMINOTRANSFERASE 17 Units/L (12-78); ALKALINE PHOSPHATASE 101 Units/L (46-116); ASPARTATE AMINO TRANSFERASE 18 Units/L (15-37); BLOOD UREA NITROGEN 32 mg/dL (7-18); CALCIUM 7.6 mg/dL (8.5-10.1); CARBON DIOXIDE 26.4 mmol/L (21-32); CHLORIDE 110 mmol/L (98-107); COR CA(FOR HYPOALB) 8.4 mg/dL (8.5-10.1); COR NA(FOR HYPERGLY) 142 mmol/L (136-145); CREATININE 1.26 mg/dL (0.70-1.30); SODIUM 141 mmol/L (136-145); eGFR BLACK RACES > 60 (>60); eGFR NON BLACK RACES > 60 (>60)
[2017-08-15 12:03] LABS: WHITE BLOOD COUNT 59.5 X10^3/uL (3.6-10.0)
[2017-08-15 12:04] LABS: BAND NEUTROPHILS % 16 % (0-10); METAMYELOCYTES % 12; MYELOCYTES % 4
[2017-08-15 12:05] LABS: ANISOCYTOSIS 1+; HYPOCHROMASIA SLIGHT; PLATELET MORPHOLOGY COMMENT NORMAL (NORMAL); POIKILOCYTOSIS SLIGHT
== END ==
LOC: LAB 10:50
PROVIDERS: ATTEND Internal Medicine Medical Oncology
DX: D46.Z Other myelodysplastic syndromes (principal); Z79.01 Long term (current) use of anticoagulants
CPT/HCPCS: 36415; 80053; 85025; 85610

== ENCOUNTER → 2017-08-22 | Outpatient (CLI) | payer OTHER ==
[2013-07-26 09:49] VITALS: BP 117/70
[2017-08-22 11:59] LABS: HEMATOCRIT 22.7 % (42.0-54.0); HEMOGLOBIN 7.3 g/dL (13.5-18.0); MEAN CORPUSCULAR HEMOGLOBIN 29.8 pg (27.0-34.0); RED BLOOD COUNT 2.45 X10^6/uL (4.7-6.0)
[2017-08-22 12:04] LABS: BASOPHILS # (AUTO) 0.7 X10^3/uL (0.0-0.1); BASOPHILS % (AUTO) 0.8 % (0.2-1.0); EOSINOPHILS # (AUTO) 0.5 x10^3/uL (0.0-0.2); EOSINOPHILS % (AUTO) 0.6 % (0.9-2.9); LYMPHOCYTES # (AUTO) 2.5 X10^3/uL (1.3-2.9); MEAN CORPUSCULAR HGB CONC 32.1 g/dL (33.0-35.0); MEAN CORPUSCULAR VOLUME 92.8 fL (80.0-100.0); MEAN PLATELET VOLUME 11.7 fL (7.4-11.0); MONOCYTES % (AUTO) 17.9 % (0.0-13.0); NEUTROPHILS # (AUTO) 65.5 x10^3/uL (2.2-4.8); NEUTROPHILS % (AUTO) 77.7 % (42.0-75.0); PLATELET COUNT 34 X10^3/uL (150.0-450.0); RED CELL DISTRIBUTION WIDTH 17.3 % (11.6-16.5)
[2017-08-22 12:08] LABS: ALANINE AMINOTRANSFERASE 17 Units/L (12-78); ALBUMIN 3.2 g/dL (3.4-5.0); ALKALINE PHOSPHATASE 95 Units/L (46-116); ASPARTATE AMINO TRANSFERASE 21 Units/L (15-37); BLOOD UREA NITROGEN 37 mg/dL (7-18); CALCIUM 8.1 mg/dL (8.5-10.1); CARBON DIOXIDE 26.5 mmol/L (21-32); CHLORIDE 108 mmol/L (98-107); COR CA(FOR HYPOALB) 8.7 mg/dL (8.5-10.1); CREATININE 1.13 mg/dL (0.70-1.30); SODIUM 143 mmol/L (136-145); TOTAL PROTEIN 6.2 g/dL (6.4-8.2); eGFR BLACK RACES > 60 (>60); eGFR NON BLACK RACES > 60 (>60)
[2017-08-22 12:09] LABS: WHITE BLOOD COUNT 84.3 X10^3/uL (3.6-10.0)
[2017-08-22 12:17] LABS: METAMYELOCYTES % 21; MYELOCYTES % 10
[2017-08-22 12:18] LABS: BAND NEUTROPHILS % 14 % (0-10); GIANT PLATELET N
[2017-08-22 12:19] LABS: ANISOCYTOSIS 1+; HYPOCHROMASIA 1+; PLATELET MORPHOLOGY COMMENT NORMAL (NORMAL)
== END ==
LOC: LAB 11:10
PROVIDERS: ATTEND Internal Medicine Medical Oncology
DX: D46.9 Myelodysplastic syndrome, unspecified (principal); Z79.01 Long term (current) use of anticoagulants
CPT/HCPCS: 36415; 80053; 85025; 85610

== ENCOUNTER → 2017-08-29 | Outpatient (CLI) | payer OTHER ==
[2013-07-26 09:49] VITALS: BP 117/70
[2017-08-29 12:59] LABS: BASOPHILS # (AUTO) 0.3 X10^3/uL (0.0-0.1); BASOPHILS % (AUTO) 0.6 % (0.2-1.0); EOSINOPHILS # (AUTO) 0.5 x10^3/uL (0.0-0.2); EOSINOPHILS % (AUTO) 0.9 % (0.9-2.9); HEMATOCRIT 23.6 % (42.0-54.0); HEMOGLOBIN 7.7 g/dL (13.5-18.0); LYMPHOCYTES # (AUTO) 3.5 X10^3/uL (1.3-2.9); LYMPHOCYTES % (AUTO) 6.9 % (21.0-51.0); MEAN CORPUSCULAR HEMOGLOBIN 30.4 pg (27.0-34.0); MEAN CORPUSCULAR HGB CONC 32.6 g/dL (33.0-35.0); MEAN CORPUSCULAR VOLUME 93.1 fL (80.0-100.0); MONOCYTES # (AUTO) 31.8 x10^3/uL (0.3-0.8); MONOCYTES % (AUTO) 63.4 % (0.0-13.0); NEUTROPHILS # (AUTO) 14.1 x10^3/uL (2.2-4.8); NEUTROPHILS % (AUTO) 28.2 % (42.0-75.0); PLATELET COUNT 256 X10^3/uL (150.0-450.0); RED BLOOD COUNT 2.54 X10^6/uL (4.7-6.0); RED CELL DISTRIBUTION WIDTH 17.3 % (11.6-16.5)
[2017-08-29 13:04] LABS: ALANINE AMINOTRANSFERASE 22 Units/L (12-78); ALBUMIN 3.1 g/dL (3.4-5.0); ALKALINE PHOSPHATASE 100 Units/L (46-116); ASPARTATE AMINO TRANSFERASE 14 Units/L (15-37); BLOOD UREA NITROGEN 29 mg/dL (7-18); CALCIUM 7.6 mg/dL (8.5-10.1); CARBON DIOXIDE 27.5 mmol/L (21-32); CHLORIDE 108 mmol/L (98-107); COR CA(FOR HYPOALB) 8.3 mg/dL (8.5-10.1); COR NA(FOR HYPERGLY) 143 mmol/L (136-145); SODIUM 142 mmol/L (136-145); TOTAL PROTEIN 6.2 g/dL (6.4-8.2); eGFR BLACK RACES > 60 (>60); eGFR NON BLACK RACES > 60 (>60)
[2017-08-29 13:14] LABS: WHITE BLOOD COUNT 50.2 X10^3/uL (3.6-10.0)
[2017-08-29 13:19] LABS: ANISOCYTOSIS SLIGHT; BAND NEUTROPHILS % 15 % (0-10); METAMYELOCYTES % 12; PLATELET MORPHOLOGY COMMENT NORMAL (NORMAL)
[2017-08-29 13:20] LABS: HYPOCHROMASIA SLIGHT
== END ==
LOC: LAB 12:28
PROVIDERS: ATTEND Internal Medicine Medical Oncology
DX: D46.9 Myelodysplastic syndrome, unspecified (principal); Z79.01 Long term (current) use of anticoagulants
CPT/HCPCS: 36415; 80053; 85025; 85610

== ENCOUNTER → 2017-09-19 | Outpatient (CLI) | payer OTHER ==
[2013-07-26 09:49] VITALS: BP 117/70
[2017-09-19 08:00] LABS: BASOPHILS # (AUTO) 0.7 X10^3/uL (0.0-0.1); BASOPHILS % (AUTO) 0.7 % (0.2-1.0); EOSINOPHILS # (AUTO) 0.6 x10^3/uL (0.0-0.2); EOSINOPHILS % (AUTO) 0.6 % (0.9-2.9); HEMATOCRIT 21.7 % (42.0-54.0); LYMPHOCYTES % (AUTO) 2.8 % (21.0-51.0); MEAN CORPUSCULAR HEMOGLOBIN 29.2 pg (27.0-34.0); MEAN CORPUSCULAR HGB CONC 31.8 g/dL (33.0-35.0); MEAN CORPUSCULAR VOLUME 91.9 fL (80.0-100.0); MEAN PLATELET VOLUME 12.3 fL (7.4-11.0); MONOCYTES # (AUTO) 17.4 x10^3/uL (0.3-0.8); MONOCYTES % (AUTO) 16.4 % (0.0-13.0); NEUTROPHILS # (AUTO) 84.5 x10^3/uL (2.2-4.8); PLATELET COUNT 33 X10^3/uL (150.0-450.0); RED BLOOD COUNT 2.37 X10^6/uL (4.7-6.0); RED CELL DISTRIBUTION WIDTH 17.3 % (11.6-16.5)
[2017-09-19 08:58] LABS: WHITE BLOOD COUNT 106.2 X10^3/uL (3.6-10.0)
[2017-09-19 08:59] LABS: ALANINE AMINOTRANSFERASE 18 Units/L (12-78); ALBUMIN 2.9 g/dL (3.4-5.0); ALKALINE PHOSPHATASE 126 Units/L (46-116); ASPARTATE AMINO TRANSFERASE 30 Units/L (15-37); BLOOD UREA NITROGEN 30 mg/dL (7-18); CALCIUM 7.8 mg/dL (8.5-10.1); CARBON DIOXIDE 26.5 mmol/L (21-32); CHLORIDE 106 mmol/L (98-107); COR CA(FOR HYPOALB) 8.7 mg/dL (8.5-10.1); COR NA(FOR HYPERGLY) 144 mmol/L (136-145); CREATININE 1.34 mg/dL (0.70-1.30); HEMOGLOBIN 6.9 g/dL (13.5-18.0); SODIUM 142 mmol/L (136-145); TOTAL PROTEIN 6.1 g/dL (6.4-8.2); eGFR BLACK RACES > 60 (>60); eGFR NON BLACK RACES 56 (>60)
[2017-09-19 09:00] LABS: BAND NEUTROPHILS % 27 % (0-10); METAMYELOCYTES % 19; MYELOCYTES % 3
[2017-09-19 09:01] LABS: SMUDGE CELLS NOTED
[2017-09-19 09:02] LABS: NEUTROPHILS % (AUTO) 79.5 % (42.0-75.0); PLATELET MORPHOLOGY COMMENT NORMAL (NORMAL)
[2017-09-19 09:03] LABS: HYPOCHROMASIA 1+
== END ==
LOC: LAB 07:36
PROVIDERS: ATTEND Internal Medicine Medical Oncology
DX: D46.9 Myelodysplastic syndrome, unspecified (principal); Z79.01 Long term (current) use of anticoagulants
CPT/HCPCS: 36415; 80053; 85025; 85610

== ENCOUNTER → 2017-09-26 | Outpatient (CLI) | payer OTHER ==
[2017-09-20 14:58] VITALS: BP 100/50
[2017-09-26 08:54] LABS: ALANINE AMINOTRANSFERASE 23 Units/L (12-78); ALBUMIN 2.9 g/dL (3.4-5.0); ALKALINE PHOSPHATASE 152 Units/L (46-116); ASPARTATE AMINO TRANSFERASE 26 Units/L (15-37); BLOOD UREA NITROGEN 30 mg/dL (7-18); CALCIUM 8.1 mg/dL (8.5-10.1); CARBON DIOXIDE 26.8 mmol/L (21-32); CHLORIDE 106 mmol/L (98-107); COR NA(FOR HYPERGLY) 143 mmol/L (136-145); CREATININE 1.17 mg/dL (0.70-1.30); SODIUM 142 mmol/L (136-145); TOTAL PROTEIN 6.2 g/dL (6.4-8.2); eGFR BLACK RACES > 60 (>60); eGFR NON BLACK RACES > 60 (>60)
[2017-09-26 09:15] LABS: BASOPHILS # (AUTO) 0.6 X10^3/uL (0.0-0.1); BASOPHILS % (AUTO) 0.5 % (0.2-1.0); EOSINOPHILS # (AUTO) 1.2 x10^3/uL (0.0-0.2); EOSINOPHILS % (AUTO) 1.2 % (0.9-2.9); LYMPHOCYTES # (AUTO) 4.9 X10^3/uL (1.3-2.9); LYMPHOCYTES % (AUTO) 4.8 % (21.0-51.0); MEAN CORPUSCULAR HEMOGLOBIN 28.6 pg (27.0-34.0); MEAN CORPUSCULAR HGB CONC 30.9 g/dL (33.0-35.0); MEAN CORPUSCULAR VOLUME 92.6 fL (80.0-100.0); MEAN PLATELET VOLUME 12.4 fL (7.4-11.0); MONOCYTES % (AUTO) 32.2 % (0.0-13.0); NEUTROPHILS # (AUTO) 62.8 x10^3/uL (2.2-4.8); NEUTROPHILS % (AUTO) 61.3 % (42.0-75.0); PLATELET COUNT 74 X10^3/uL (150.0-450.0); RED BLOOD COUNT 2.13 X10^6/uL (4.7-6.0); RED CELL DISTRIBUTION WIDTH 16.6 % (11.6-16.5)
[2017-09-26 09:25] LABS: WHITE BLOOD COUNT 102.6 X10^3/uL (3.6-10.0)
[2017-09-26 09:26] LABS: HEMATOCRIT 19.8 % (42.0-54.0); HEMOGLOBIN 6.1 g/dL (13.5-18.0)
[2017-09-26 09:27] LABS: BAND NEUTROPHILS % 23 % (0-10); METAMYELOCYTES % 20
[2017-09-26 09:28] LABS: HYPOCHROMASIA 2+; PLATELET MORPHOLOGY COMMENT NORMAL (NORMAL)
[2017-09-26 09:29] LABS: ANISOCYTOSIS 1+; SMUDGE CELLS NOTED
== END ==
LOC: LAB 08:14
PROVIDERS: ATTEND Internal Medicine Medical Oncology
DX: Z79.01 Long term (current) use of anticoagulants (principal); D46.9 Myelodysplastic syndrome, unspecified
CPT/HCPCS: 36415; 80053; 85025; 85610

== ENCOUNTER → 2017-10-03 | Outpatient (CLI) | payer OTHER ==
[2017-09-20 14:58] VITALS: BP 100/50
[2017-10-03 10:51] LABS: ALBUMIN 3.1 g/dL (3.4-5.0); CALCIUM 8.2 mg/dL (8.5-10.1); CARBON DIOXIDE 26.5 mmol/L (21-32); COR CA(FOR HYPOALB) 8.9 mg/dL (8.5-10.1); CREATININE 1.55 mg/dL (0.70-1.30); TOTAL PROTEIN 6.1 g/dL (6.4-8.2)
[2017-10-03 10:56] LABS: BASOPHILS # (AUTO) 0.1 X10^3/uL (0.0-0.1); BASOPHILS % (AUTO) 0.1 % (0.2-1.0); EOSINOPHILS # (AUTO) 0.1 x10^3/uL (0.0-0.2); EOSINOPHILS % (AUTO) 0.1 % (0.9-2.9); HEMATOCRIT 20.1 % (42.0-54.0); LYMPHOCYTES # (AUTO) 3.3 X10^3/uL (1.3-2.9); LYMPHOCYTES % (AUTO) 2.7 % (21.0-51.0); MEAN CORPUSCULAR HEMOGLOBIN 28.3 pg (27.0-34.0); MEAN CORPUSCULAR HGB CONC 30.8 g/dL (33.0-35.0); MONOCYTES # (AUTO) 61.7 x10^3/uL (0.3-0.8); MONOCYTES % (AUTO) 51.4 % (0.0-13.0); NEUTROPHILS # (AUTO) 54.8 x10^3/uL (2.2-4.8); NEUTROPHILS % (AUTO) 45.7 % (42.0-75.0); PLATELET COUNT 148 X10^3/uL (150.0-450.0); RED BLOOD COUNT 2.19 X10^6/uL (4.7-6.0); RED CELL DISTRIBUTION WIDTH 16.8 % (11.6-16.5)
[2017-10-03 11:19] LABS: HEMOGLOBIN 6.2 g/dL (13.5-18.0)
[2017-10-03 11:25] LABS: BAND NEUTROPHILS % 6 % (0-10); METAMYELOCYTES % 16; MYELOCYTES % 16
[2017-10-03 11:26] LABS: ANISOCYTOSIS 1+; HYPOCHROMASIA 2+; PLATELET MORPHOLOGY COMMENT NORMAL (NORMAL)
== END ==
LOC: LAB 10:17
PROVIDERS: ATTEND Internal Medicine Medical Oncology
DX: D46.9 Myelodysplastic syndrome, unspecified (principal); Z79.01 Long term (current) use of anticoagulants
CPT/HCPCS: 36415; 80053; 85025; 85610

== ENCOUNTER → 2017-10-17 | Outpatient (CLI) | payer OTHER ==
[2017-09-20 14:58] VITALS: BP 100/50
[2017-10-17 11:34] LABS: ALANINE AMINOTRANSFERASE 18 Units/L (12-78); ALBUMIN 2.8 g/dL (3.4-5.0); ALKALINE PHOSPHATASE 134 Units/L (46-116); BLOOD UREA NITROGEN 44 mg/dL (7-18); CALCIUM 7.5 mg/dL (8.5-10.1); CARBON DIOXIDE 22.3 mmol/L (21-32); CHLORIDE 112 mmol/L (98-107); COR CA(FOR HYPOALB) 8.5 mg/dL (8.5-10.1); COR NA(FOR HYPERGLY) 138 mmol/L (136-145); CREATININE 1.29 mg/dL (0.70-1.30); SODIUM 137 mmol/L (136-145); TOTAL PROTEIN 5.7 g/dL (6.4-8.2); eGFR BLACK RACES > 60 (>60); eGFR NON BLACK RACES 59 (>60)
[2017-10-17 11:40] LABS: BASOPHILS # (AUTO) 1.7 X10^3/uL (0.0-0.1); BASOPHILS % (AUTO) 1.2 % (0.2-1.0); EOSINOPHILS # (AUTO) 2.1 x10^3/uL (0.0-0.2); EOSINOPHILS % (AUTO) 1.5 % (0.9-2.9); LYMPHOCYTES # (AUTO) 2.1 X10^3/uL (1.3-2.9); LYMPHOCYTES % (AUTO) 1.4 % (21.0-51.0); MEAN CORPUSCULAR VOLUME 94.5 fL (80.0-100.0); MEAN PLATELET VOLUME 10.1 fL (7.4-11.0); MONOCYTES # (AUTO) 16.2 x10^3/uL (0.3-0.8); MONOCYTES % (AUTO) 11.4 % (0.0-13.0); NEUTROPHILS # (AUTO) 119.6 x10^3/uL (2.2-4.8); NEUTROPHILS % (AUTO) 84.5 % (42.0-75.0); RED BLOOD COUNT 1.95 X10^6/uL (4.7-6.0); RED CELL DISTRIBUTION WIDTH 17.4 % (11.6-16.5)
[2017-10-17 11:44] LABS: ASPARTATE AMINO TRANSFERASE 36 Units/L (15-37); WHITE BLOOD COUNT 141.7 X10^3/uL (3.6-10.0)
[2017-10-17 11:45] LABS: HEMATOCRIT 18.4 % (42.0-54.0); HEMOGLOBIN 6.4 g/dL (13.5-18.0)
[2017-10-17 11:46] LABS: PLATELET COUNT 12 X10^3/uL (150.0-450.0)
[2017-10-17 12:15] LABS: BAND NEUTROPHILS % 22 % (0-10)
[2017-10-17 12:16] LABS: METAMYELOCYTES % 12; MYELOCYTES % 8; PLATELET MORPHOLOGY COMMENT NORMAL (NORMAL); PROMYELOCYTES % 10
[2017-10-17 12:17] LABS: ANISOCYTOSIS 2+; HYPOCHROMASIA 2+
== END ==
LOC: LAB 10:50
PROVIDERS: ATTEND Internal Medicine Medical Oncology
DX: Z79.01 Long term (current) use of anticoagulants (principal); D46.9 Myelodysplastic syndrome, unspecified
CPT/HCPCS: 36415; 80053; 85025; 85610

== ENCOUNTER → 2017-10-24 | Outpatient (CLI) | payer OTHER ==
[2017-09-20 14:58] VITALS: BP 100/50
[2017-10-24 11:49] LABS: ALANINE AMINOTRANSFERASE 15 Units/L (12-78); ALBUMIN 2.9 g/dL (3.4-5.0); ALKALINE PHOSPHATASE 124 Units/L (46-116); ASPARTATE AMINO TRANSFERASE 31 Units/L (15-37); BLOOD UREA NITROGEN 44 mg/dL (7-18); CALCIUM 7.8 mg/dL (8.5-10.1); CARBON DIOXIDE 27.8 mmol/L (21-32); CHLORIDE 104 mmol/L (98-107); COR CA(FOR HYPOALB) 8.7 mg/dL (8.5-10.1); COR NA(FOR HYPERGLY) 141 mmol/L (136-145); CREATININE 1.48 mg/dL (0.70-1.30); SODIUM 140 mmol/L (136-145); TOTAL PROTEIN 5.8 g/dL (6.4-8.2); eGFR BLACK RACES > 60 (>60); eGFR NON BLACK RACES 50 (>60)
[2017-10-24 11:50] LABS: BASOPHILS # (AUTO) 0.9 X10^3/uL (0.0-0.1); BASOPHILS % (AUTO) 0.6 % (0.2-1.0); EOSINOPHILS # (AUTO) 1.6 x10^3/uL (0.0-0.2); EOSINOPHILS % (AUTO) 1.3 % (0.9-2.9); LYMPHOCYTES # (AUTO) 3.2 X10^3/uL (1.3-2.9); LYMPHOCYTES % (AUTO) 2.5 % (21.0-51.0); MEAN CORPUSCULAR HEMOGLOBIN 29.6 pg (27.0-34.0); MEAN CORPUSCULAR HGB CONC 32.1 g/dL (33.0-35.0); MEAN CORPUSCULAR VOLUME 92.3 fL (80.0-100.0); MONOCYTES # (AUTO) 15.8 x10^3/uL (0.3-0.8); NEUTROPHILS % (AUTO) 83.6 % (42.0-75.0); PLATELET COUNT 34 X10^3/uL (150.0-450.0); RED BLOOD COUNT 2.13 X10^6/uL (4.7-6.0)
[2017-10-24 11:58] LABS: HEMOGLOBIN 6.3 g/dL (13.5-18.0)
[2017-10-24 12:00] LABS: HEMATOCRIT 19.6 % (42.0-54.0)
[2017-10-24 12:01] LABS: WHITE BLOOD COUNT 131.4 X10^3/uL (3.6-10.0)
== END ==
LOC: LAB 10:42
PROVIDERS: ATTEND Internal Medicine Medical Oncology
DX: Z79.01 Long term (current) use of anticoagulants (principal); D46.9 Myelodysplastic syndrome, unspecified
CPT/HCPCS: 36415; 80053; 85025; 85610

== ENCOUNTER 2017-10-30 15:32 | Emergency (ER) | payer OTHER ==
[2017-10-30 15:40] VITALS: BP 122/78; BMI 23.7
[2017-10-30] MEDS ORDERED: DILAUDID INJ IM ONE (16:07)
--- NOTE | 2017-10-30 16:07 | DR.GENAD ---
HPI - PCP Primary Care Physician: DAMIAN - Complaint/Symptoms Chief Complaint Doctors Comments: Patient with cancer; started physical therapy on last week. It is reported that he has back and hip pain. The physical therapist is having him to use his upper thorax and lumbar for flexibility. He is followed by oncologist usually seen weekly. He usually get blood work weekly or every other week to monitor for anemia. Chief Complaint:: "MY BACK AND HIP HURTS" Self Treatment fo Chief Complaint: NONE - Source History Provided: Patient, Significant Other - Mode of Arrival Mode of Arrival: Wheelchair - Timing Onset of Chief Complaint: 10/29/17 PMH - PMH Past Medical History: Yes Past Medical History: Coronary Artery Disease, Hypertension Past Surgical History: Yes Surgical History: Unknown Past Surgical History Comment: PT UNABLE TO TELL ME AT THIS TIME - Family History History of Family Medical Conditions: Yes Family Medical History: Cancer, [place], Coronary Artery Disease, Hypertension - Social History Does patient currently use any type of tobacco product: No Have you used tobacco products in the last 12 months: No Type of Tobacco Use: None Does any household member use tobacco: No Alcohol Use: None Do you use any recreational Drugs:: No Lives With: Spouse Lives Where: Home - infectious screening In the last 2 months have you had wt loss of >10#?: NO Have you had fever, night sweats or hemotysis?: No Have you traveled outside the country in the last 6 months?: No Isolation: Standard ROS - Review of Systems Eyes: No Symptoms Reported ENTM: No Symptoms Reported Respiratoy: No Symptoms Reported Cardiovascular: No Symptoms Reported Gastrointestinal/Abdominal: No Symptoms Reported Genitourinary: No Symptoms Reported Neurological: No Symptoms Reported Musculoskeletal: Back Pain, Hip Integumentary: No Symptoms Reported Hematologic/Lymphatic: No Symptoms Reported Endocrine: No Symptoms Reported Psychiatric: No Symptoms Reported All Other Systems: Reviewed and Negative PE - Vital Signs Vitals: Temperature 98.1 F Pulse Rate 75 Respiratory Rate 20 Blood Pressure [Right Arm] 100/50 Blood Pressure 122/78 O2 Sat by Pulse Oximetry 97 - General General Appearance: Alert, In No Apparent Distress - Head Head Exam: Normal Inspection, Atraumatic - Eyes Eye exam: Normal Appearance - ENT ENT Exam: Normal Exam External Ear Exam: Normal External Inspection TM/Canal Exam: Bilateral Normal Nose Exam: Normal Nose Exam Mouth Exam: Normal Inspection Throat Exam: Normal Inspection - Neck Neck Exam: Normal Inspection - Chest Chest Inspection: Normal Inspection - Respiratory Respiratory Exam: Normal Lung Sounds Bilat Respiratory Exam: Bilateral Clear to Auscultation - Cardiovascular Cardiovascular Exam: Regular Rate, Normal Rhythm - Abdominal Exam Abdominal Exam: Normal Inspection Abdominal Tenderness: negative: RUQ, RLQ, LUQ, LLQ, Epigastrium, Suprapubic, Diffuse, Mild, Moderate, Severe, Other - Extremities Extremities Exam: Normal Inspection - Back Back Exam: Normal Inspection - Neurologic Neurological Exam: Alert, Oriented X3, CN II-XII Intact - Psychiatric Psychiatric Exam: Normal Affect - Skin Skin Exam: Warm, Dry, Intact Course - Treatment Treatment: Dilaudid 1mg - Reevaluation 1st: Improved - Diagnosis Discharge Problem: Back pain Qualifiers: Back pain location: back pain in unspecified location Chronicity: acute Back pain laterality: midline Qualified Code(s): M54.9 - Dorsalgia, unspecified Hip pain Qualifiers: Laterality: unspecified laterality Qualified Code(s): M25.559 - Pain in unspecified hip - Discharge Plan Condition: Stable - Follow ups/Referrals Follow ups/Referrals: Alexis Sky [Primary Care Provider] - 3 days - Instructions
[2017-10-30] MEDS ORDERED: DILAUDID INJ ONE (16:09)
== END 2017-10-30 17:10 | disposition home or self-care (01) ==
LOC: ER 15:47
DX: M54.5 Low back pain (principal); M25.559 Pain in unspecified hip
CPT/HCPCS: 96372; 99282

== ENCOUNTER → 2017-10-31 | Outpatient (CLI) | payer OTHER ==
[2017-10-30 15:40] VITALS: BP 122/78
[2017-10-31 11:15] LABS: BASOPHILS # (AUTO) 1.9 X10^3/uL (0.0-0.1); BASOPHILS % (AUTO) 1.1 % (0.2-1.0); EOSINOPHILS # (AUTO) 1.2 x10^3/uL (0.0-0.2); EOSINOPHILS % (AUTO) 0.7 % (0.9-2.9); LYMPHOCYTES # (AUTO) 1.7 X10^3/uL (1.3-2.9); MEAN CORPUSCULAR HEMOGLOBIN 30.1 pg (27.0-34.0); MEAN CORPUSCULAR HGB CONC 32.6 g/dL (33.0-35.0); MEAN CORPUSCULAR VOLUME 92.4 fL (80.0-100.0); MEAN PLATELET VOLUME 12.3 fL (7.4-11.0); MONOCYTES # (AUTO) 39.7 x10^3/uL (0.3-0.8); MONOCYTES % (AUTO) 23.5 % (0.0-13.0); NEUTROPHILS # (AUTO) 124.2 x10^3/uL (2.2-4.8); NEUTROPHILS % (AUTO) 73.7 % (42.0-75.0); PLATELET COUNT 71 X10^3/uL (150.0-450.0); RED BLOOD COUNT 2.13 X10^6/uL (4.7-6.0); RED CELL DISTRIBUTION WIDTH 18.2 % (11.6-16.5)
[2017-10-31 11:16] LABS: ALANINE AMINOTRANSFERASE 12 Units/L (12-78); ALBUMIN 2.9 g/dL (3.4-5.0); ALKALINE PHOSPHATASE 113 Units/L (46-116); ASPARTATE AMINO TRANSFERASE 23 Units/L (15-37); BLOOD UREA NITROGEN 35 mg/dL (7-18); CALCIUM 8.3 mg/dL (8.5-10.1); CARBON DIOXIDE 24.1 mmol/L (21-32); CHLORIDE 104 mmol/L (98-107); COR CA(FOR HYPOALB) 9.2 mg/dL (8.5-10.1); COR NA(FOR HYPERGLY) 141 mmol/L (136-145); CREATININE 1.38 mg/dL (0.70-1.30); SODIUM 139 mmol/L (136-145); TOTAL PROTEIN 5.8 g/dL (6.4-8.2); eGFR BLACK RACES > 60 (>60); eGFR NON BLACK RACES 54 (>60)
[2017-10-31 11:32] LABS: WHITE BLOOD COUNT 168.6 X10^3/uL (3.6-10.0)
[2017-10-31 11:33] LABS: HEMATOCRIT 19.7 % (42.0-54.0); HEMOGLOBIN 6.4 g/dL (13.5-18.0)
[2017-10-31 11:34] LABS: BAND NEUTROPHILS % 12 % (0-10); METAMYELOCYTES % 18; MYELOCYTES % 5
[2017-10-31 11:35] LABS: ANISOCYTOSIS 1+; HYPOCHROMASIA 1+; PLATELET MORPHOLOGY COMMENT NORMAL (NORMAL)
== END ==
LOC: LAB 10:35
PROVIDERS: ATTEND Internal Medicine Medical Oncology
DX: D46.9 Myelodysplastic syndrome, unspecified (principal); Z79.01 Long term (current) use of anticoagulants
CPT/HCPCS: 36415; 80053; 85025; 85610

== ENCOUNTER 2017-12-05 07:43 | Inpatient (IN) | payer OTHER ==
[2017-12-05 08:01] VITALS: BMI 23.0
[2017-12-05] MEDS ORDERED: BENADRYL INJ 50 MG VIAL IVP ONE (08:15)
--- NOTE | 2017-12-05 08:16 | DR.EXTPAIN ---
HPI - Time seen Time seen: 08:15 - PCP Primary Care Physician: ESTHELA ASCENCIO [employer] - Complaint/Symptoms Chief Complaint Doctor Comments: patient presented to the ED for pain management. He has cancer and his present medicatin (percocet) is no relieving the pain. Chief Complaint:: EMS OUT TO PT WITH C/O BACK AND HIP PAIN PT C/O THAT IT IS HAS BEEN GOING ON SINCE TUESDAY PT DOES NOT KNOW WHAT PAIN MEDS HE TAKES AND HE STATES HE HAS BONE CANCER ,, PT C/O SHARP INTERMITTANT PAIN,,,, Self Treatment fo Chief Complaint: PT DENIES ANY TRAUMA,, BR - Source History Provided: Patient, EMS - Mode of arrival Mode of Arrival: EMS - Timing Onset of Chief Complaint: 12/02/17 <DIMITRI HALL - Last Filed: 12/05/17 08:12> PMH - PMH Past Medical History: Yes Past Medical History: Coronary Artery Disease, Hypertension Past Surgical History: Yes Surgical History: Unknown - Family History History of Family Medical Conditions: Yes Family Medical History: Cancer, [place], Coronary Artery Disease, Hypertension - Social History Does patient currently use any type of tobacco product: No Have you used tobacco products in the last 12 months: No Type of Tobacco Use: None Does any household member use tobacco: No Alcohol Use: None Do you use any recreational Drugs:: No Lives With: Family Lives Where: Home - infectious screening In the last 2 months have you had wt loss of >10#?: NO Have you had fever, night sweats or hemotysis?: No Have you traveled outside the country in the last 6 months?: No Isolation: Standard <DIMITRI HALL - Last Filed: 12/05/17 08:12> - Vital Signs Vitals: Temperature 97.9 F Pulse Rate 108 Respiratory Rate 20 Blood Pressure [Left Arm] 101/62 Blood Pressure [Right Arm] 106/55 Blood Pressure 123/53 O2 Sat by Pulse Oximetry 98 ROR - Labs Reviewed Result Diagrams: 12/06/17 08:41 12/06/17 05:34 <ALCON CESAR - Last Filed: 12/06/17 11:49> - Labs Reviewed Laboratory: WBC 388.2 X10^3/uL (3.6-10.0) H* 12/05/17 08:45 RBC 1.87 X10^6/uL (4.7-6.0) L 12/05/17 08:45 Hgb 5.5 g/dL (13.5-18.0) L* 12/05/17 08:45 Hct 17.7 % (42.0-54.0) L* 12/05/17 08:45 MCV 94.3 fL (80.0-100.0) 12/05/17 08:45 MCH 29.4 pg (27.0-34.0) 12/05/17 08:45 MCHC 31.2 g/dL (33.0-35.0) L 12/05/17 08:45 RDW 17.5 % (11.6-16.5) H 12/05/17 08:45 Plt Count 18 X10^3/uL (150.0-450.0) L* 12/05/17 08:45 Plt Count Comment Decreased (ADEQUATE) 12/05/17 08:45 MPV 8.4 fL (7.4-11.0) 12/05/17 08:45 Neut % (Auto) 90.3 % (42.0-75.0) H 12/05/17 08:45 Lymph % (Auto) 0.4 % (21.0-51.0) L 12/05/17 08:45 Sumner % (Auto) 7.7 % (0.0-13.0) 12/05/17 08:45 Eos % (Auto) 1.2 % (0.9-2.9) 12/05/17 08:45 Baso % (Auto) 0.4 % (0.2-1.0) 12/05/17 08:45 Neut # (Auto) 351.2 x10^3/uL (2.2-4.8) H 12/05/17 08:45 Lymph # (Auto) 1.4 X10^3/uL (1.3-2.9) 12/05/17 08:45 Sumner # (Auto) 29.8 x10^3/uL (0.3-0.8) H 12/05/17 08:45 Eos # (Auto) 4.5 x10^3/uL (0.0-0.2) H 12/05/17 08:45 Baso # (Auto) 1.4 X10^3/uL (0.0-0.1) H 12/05/17 08:45 Absolute Nucleated RBC 0.0 /100WBC 12/05/17 08:45 Total Counted 100 12/05/17 08:45 Neutrophils % (Manual) 35 % (39-76) L 12/05/17 08:45 Band Neutrophils % 21 % (0-10) H 12/05/17 08:45 Lymphocytes % (Manual) Not Reportable 12/05/17 08:45 Monocytes % (Manual) 5 % (4-9) 12/05/17 08:45 Metamyelocytes % 30 12/05/17 08:45 Myelocytes % 4 12/05/17 08:45 Nucleated RBCs 1 12/05/17 08:45 Blast Cells 5 (-1) H 12/05/17 08:45 Plt Morphology Comment Normal (NORMAL) 12/05/17 08:45 RBC Morphology Abnormal (NORMAL) 12/05/17 08:45 Hypochromasia 1+ A 12/05/17 08:45 Anisocytosis 1+ A 12/05/17 08:45 INR Target Range - 12/05/17 08:45 INR 1.42 (0.8-1.3) H 12/05/17 08:45 Sodium 142 mmol/L (136-145) 12/05/17 08:45 Corrected Sodium 144 mmol/L (136-145) 12/05/17 08:45 Potassium 3.8 mmol/L (3.5-5.1) 12/05/17 08:45 Chloride 103 mmol/L (98-107) 12/05/17 08:45 Carbon Dioxide 29.7 mmol/L (21-32) 12/05/17 08:45 BUN 47 mg/dL (7-18) H 12/05/17 08:45 Creatinine 1.53 mg/dL (0.70-1.30) H 12/05/17 08:45 Est GFR (MDRD) Af Amer 58 (>60) L 12/05/17 08:45 Est GFR (MDRD) Non-Af 48 (>60) L 12/05/17 08:45 Glucose 166 mg/dL (65-99) H 12/05/17 08:45 Calcium 8.5 mg/dL (8.5-10.1) 12/05/17 08:45 Corrected Calcium 9.3 mg/dL (8.5-10.1) 12/05/17 08:45 Total Bilirubin 1.00 mg/dL (0.2-1.0) 12/05/17 08:45 AST 52 Units/L (15-37) H 12/05/17 08:45 ALT 22 Units/L (12-78) 12/05/17 08:45 Alkaline Phosphatase 135 Units/L (46-116) H 12/05/17 08:45 Total Protein 6.3 g/dL (6.4-8.2) L 12/05/17 08:45 Albumin 3.0 g/dL (3.4-5.0) L 12/05/17 08:45 Globulin 3.3 g/dL (2.5-4.5) 12/05/17 08:45 Albumin/Globulin Ratio 0.9 Ratio (1.1-2.1) L 12/05/17 08:45 Blood Type O POSITIVE 12/05/17 08:45 Crossmatch See Detail 12/05/17 08:45 <DIMITRI HALL - Last Filed: 12/05/17 08:12> <ALCON CESAR - Last Filed: 12/06/17 11:49> - Diagnosis Discharge Problem: Pain, Thrombocytopenia Leukemia Qualifiers: Leukemia type: other type Leukemia Active/Remission status: without remission Qualified Code(s): 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
[2017-12-05] MEDS ORDERED: BENADRYL INJ 50 MG VIAL ONE ×2 (08:17→08:18)
[2017-12-05] MEDS: DILAUDID INJ IVP PRN ×4 (08:29→18:05)
[2017-12-05 09:04] LABS: BASOPHILS # (AUTO) 1.4 X10^3/uL (0.0-0.1); BASOPHILS % (AUTO) 0.4 % (0.2-1.0); EOSINOPHILS # (AUTO) 4.5 x10^3/uL (0.0-0.2); EOSINOPHILS % (AUTO) 1.2 % (0.9-2.9); LYMPHOCYTES # (AUTO) 1.4 X10^3/uL (1.3-2.9); LYMPHOCYTES % (AUTO) 0.4 % (21.0-51.0); MEAN CORPUSCULAR HEMOGLOBIN 29.4 pg (27.0-34.0); MEAN CORPUSCULAR HGB CONC 31.2 g/dL (33.0-35.0); MEAN CORPUSCULAR VOLUME 94.3 fL (80.0-100.0); MEAN PLATELET VOLUME 8.4 fL (7.4-11.0); MONOCYTES # (AUTO) 29.8 x10^3/uL (0.3-0.8); MONOCYTES % (AUTO) 7.7 % (0.0-13.0); NEUTROPHILS # (AUTO) 351.2 x10^3/uL (2.2-4.8); NEUTROPHILS % (AUTO) 90.3 % (42.0-75.0); RED BLOOD COUNT 1.87 X10^6/uL (4.7-6.0); RED CELL DISTRIBUTION WIDTH 17.5 % (11.6-16.5); WHITE BLOOD COUNT 388.2 X10^3/uL (3.6-10.0)
[2017-12-05 09:10] LABS: CALCIUM 8.5 mg/dL (8.5-10.1); CARBON DIOXIDE 29.7 mmol/L (21-32); COR CA(FOR HYPOALB) 9.3 mg/dL (8.5-10.1); CREATININE 1.53 mg/dL (0.70-1.30); TOTAL PROTEIN 6.3 g/dL (6.4-8.2)
[2017-12-05 09:16] LABS: HEMATOCRIT 17.7 % (42.0-54.0); HEMOGLOBIN 5.5 g/dL (13.5-18.0)
[2017-12-05 09:17] LABS: PLATELET COUNT 18 X10^3/uL (150.0-450.0)
[2017-12-05 09:31] LABS: BAND NEUTROPHILS % 21 % (0-10); METAMYELOCYTES % 30; MYELOCYTES % 4; PLATELET MORPHOLOGY COMMENT NORMAL (NORMAL)
[2017-12-05 09:32] LABS: ANISOCYTOSIS 1+; HYPOCHROMASIA 1+
[2017-12-05] MEDS ORDERED: ZOFRAN INJ 4 MG VIAL IVP PRN (09:44)
[2017-12-05] MEDS ORDERED: NS 250 ML IV 250 ML IV ONE (10:23)
[2017-12-05 15:54] LABS: BILIRUBIN,URINE NEGATIVE (NEGATIVE); BLOOD/HEMOGLOBIN,URINE 2+ (NEGATIVE); GLUCOSE, URINE NEGATIVE (NEGATIVE); KETONES,URINE NEGATIVE (NEGATIVE); LEUKOCYTE ESTERASE ,URINE 1+ (NEGATIVE); NITRITES,URINE NEGATIVE (NEGATIVE); PROTEIN,URINE 3+ (NEGATIVE); UROBILINOGEN,URINE NORMAL (NORMAL)
[2017-12-05 16:00] LABS: APPEARANCE,URINE SLIGHTLY HAZY (CLEAR); COLOR,URINE YELLOW (YELLOW)
[2017-12-05 16:10] LABS: BACTERIA,URINE TRACE /HPF (NEGATIVE); SQUAMOUS EPITHELIAL CELL,UR RARE /HPF (NEGATIVE)
[2017-12-05 16:11] LABS: GRANULAR CASTS,URINE MODERATE /LPF (NEGATIVE); MUCUS,URINE FEW /HPF (NEGATIVE)
[2017-12-05] MEDS: NS 1000 ML 1,000 ML IV SCH ×2 (16:29→23:46)
[2017-12-05] MEDS ORDERED: PERCOCET TAB 5/325 MG PO PRN (16:44)
[2017-12-05] MEDS ORDERED: OxyCONTIN CR 20 MG PO ONE (18:38)
[2017-12-05] MEDS: OxyCONTIN CR 20 MG PO SCH ×2 (18:41→20:42)
[2017-12-05] MEDS ORDERED: OXYCONTIN 40 MG PO SCH (19:00)
[2017-12-05 22:46] LABS: HEMATOCRIT 21.3 % (42.0-54.0); HEMOGLOBIN 7.1 g/dL (13.5-18.0)
[2017-12-06] MEDS: DILAUDID INJ IVP PRN ×3 (01:50→18:59)
[2017-12-06 06:13] LABS: ALANINE AMINOTRANSFERASE 18 Units/L (12-78); ALBUMIN 2.8 g/dL (3.4-5.0); ALKALINE PHOSPHATASE 130 Units/L (46-116); ASPARTATE AMINO TRANSFERASE 51 Units/L (15-37); BASOPHILS # (AUTO) 1.9 X10^3/uL (0.0-0.1); BASOPHILS % (AUTO) 0.6 % (0.2-1.0); BLOOD UREA NITROGEN 43 mg/dL (7-18); CALCIUM 8.3 mg/dL (8.5-10.1); CARBON DIOXIDE 26.2 mmol/L (21-32); CHLORIDE 105 mmol/L (98-107); COR CA(FOR HYPOALB) 9.3 mg/dL (8.5-10.1); COR NA(FOR HYPERGLY) 142 mmol/L (136-145); CREATININE 1.38 mg/dL (0.70-1.30); EOSINOPHILS # (AUTO) 4.5 x10^3/uL (0.0-0.2); EOSINOPHILS % (AUTO) 1.3 % (0.9-2.9); HEMATOCRIT 21.8 % (42.0-54.0); HEMOGLOBIN 7.1 g/dL (13.5-18.0); LYMPHOCYTES # (AUTO) 2.1 X10^3/uL (1.3-2.9); LYMPHOCYTES % (AUTO) 0.6 % (21.0-51.0); MEAN CORPUSCULAR HEMOGLOBIN 29.5 pg (27.0-34.0); MEAN CORPUSCULAR HGB CONC 32.6 g/dL (33.0-35.0); MEAN CORPUSCULAR VOLUME 90.3 fL (80.0-100.0); MEAN PLATELET VOLUME 8.5 fL (7.4-11.0); MONOCYTES # (AUTO) 29.4 x10^3/uL (0.3-0.8); MONOCYTES % (AUTO) 8.6 % (0.0-13.0); NEUTROPHILS # (AUTO) 304.9 x10^3/uL (2.2-4.8); NEUTROPHILS % (AUTO) 88.9 % (42.0-75.0); PLATELET COUNT 22 X10^3/uL (150.0-450.0); RED BLOOD COUNT 2.41 X10^6/uL (4.7-6.0); RED CELL DISTRIBUTION WIDTH 16.6 % (11.6-16.5); SODIUM 142 mmol/L (136-145); TOTAL PROTEIN 6.1 g/dL (6.4-8.2); eGFR BLACK RACES > 60 (>60); eGFR NON BLACK RACES 54 (>60)
[2017-12-06 06:38] LABS: WHITE BLOOD COUNT 342.9 X10^3/uL (3.6-10.0)
[2017-12-06] MEDS ORDERED: NS 500 ML IV 500 ML IV ONE (08:42)
[2017-12-06] MEDS ORDERED: CITROMA PO ONE (08:55)
[2017-12-06 08:56] LABS: HEMATOCRIT 21.5 % (42.0-54.0)
[2017-12-06] MEDS ORDERED: RESTORIL CAP 15 MG PO PRN (09:03)
[2017-12-06] MEDS: PriLOSEC PO SCH (10:04)
[2017-12-06] MEDS: LYRICA CAP 100 MG PO SCH ×3 (10:06→22:30)
[2017-12-06] MEDS: ZOLOFT PO SCH (10:06)
[2017-12-06] MEDS: COLACE CAP 100 MG PO SCH ×2 (10:06→22:29)
[2017-12-06] MEDS: LANOXIN PO SCH (10:06)
[2017-12-06] MEDS: SINGULAIR TAB 10 MG PO SCH (10:07)
[2017-12-06] MEDS: OxyCONTIN CR 20 MG PO SCH ×2 (10:07→22:30)
[2017-12-06] MEDS: MAG-OX TAB PO SCH ×2 (10:07→22:30)
[2017-12-06] MEDS: FLORINEF PO SCH (10:07)
[2017-12-06] MEDS: HYDREA PO SCH ×2 (10:22→22:30)
[2017-12-06] MEDS: MEGACE ORAL SUSP 400 MG/10 ML PO SCH (10:22)
[2017-12-06] MEDS: NS 1000 ML 1,000 ML IV SCH (12:50)
[2017-12-06] MEDS ORDERED: LASIX IVP ONE (17:48)
[2017-12-06] MEDS ORDERED: LASIX ONE (17:50)
[2017-12-06 18:36] LABS: BILIRUBIN,URINE NEGATIVE (NEGATIVE); BLOOD/HEMOGLOBIN,URINE 1+ (NEGATIVE); GLUCOSE, URINE NEGATIVE (NEGATIVE); KETONES,URINE NEGATIVE (NEGATIVE); LEUKOCYTE ESTERASE ,URINE NEGATIVE (NEGATIVE); NITRITES,URINE NEGATIVE (NEGATIVE); PROTEIN,URINE 3+ (NEGATIVE); UROBILINOGEN,URINE NORMAL (NORMAL)
[2017-12-06 18:47] LABS: COLOR,URINE YELLOW (YELLOW)
[2017-12-06 18:48] LABS: APPEARANCE,URINE HAZY (CLEAR)
[2017-12-06 18:53] LABS: AMORPHOUS SEDIMENT,UR 3+ /HPF (NEGATIVE); BACTERIA,URINE 2+ /HPF (NEGATIVE); GRANULAR CASTS,URINE FEW /LPF (NEGATIVE); RBC,URINE 0-2 /HPF (NONE SEEN); SQUAMOUS EPITHELIAL CELL,UR FEW /HPF (NEGATIVE)
[2017-12-06 18:54] LABS: MUCUS,URINE FEW /HPF (NEGATIVE)
[2017-12-06] MEDS ORDERED: CARDIZEM INJ 125 MG VIAL 125 MG in NS 100 ML IV 100 ML IV PRN (20:55)
[2017-12-06] MEDS ORDERED: CARDIZEM INJ 50 MG VIAL IVP ONE (21:02)
[2017-12-06] MEDS ORDERED: NS 250 ML IV 250 ML IV ONE (21:10)
[2017-12-06] MEDS ORDERED: LANOXIN INJ ONE (21:49)
[2017-12-06] MEDS ORDERED: LANOXIN INJ IVP ONE (21:51)
[2017-12-07] MEDS: MORPHINE SULFATE INJ 2 MG INJ IVP PRN ×2 (01:08→10:44)
[2017-12-07] MEDS: NS 1000 ML 1,000 ML IV SCH ×2 (02:19→13:59)
[2017-12-07] MEDS ORDERED: TYLENOL SUPP 650 MG PR PRN ×2 (03:39→14:18)
[2017-12-07] MEDS ORDERED: NS 100 ML IV 100 ML IV ONE (05:03)
[2017-12-07] MEDS: LYRICA CAP 100 MG PO SCH ×2 (05:09→13:08)
[2017-12-07] MEDS: DILAUDID INJ IVP PRN ×2 (05:56→11:50)
[2017-12-07 07:30] LABS: BASOPHILS # (AUTO) 0.8 X10^3/uL (0.0-0.1); BASOPHILS % (AUTO) 0.2 % (0.2-1.0); EOSINOPHILS # (AUTO) 1.9 x10^3/uL (0.0-0.2); EOSINOPHILS % (AUTO) 0.5 % (0.9-2.9); HEMATOCRIT 24.4 % (42.0-54.0); LYMPHOCYTES # (AUTO) 1.8 X10^3/uL (1.3-2.9); LYMPHOCYTES % (AUTO) 0.5 % (21.0-51.0); MEAN CORPUSCULAR HEMOGLOBIN 29.9 pg (27.0-34.0); MEAN CORPUSCULAR HGB CONC 32.7 g/dL (33.0-35.0); MEAN CORPUSCULAR VOLUME 91.3 fL (80.0-100.0); MEAN PLATELET VOLUME 8.9 fL (7.4-11.0); MONOCYTES # (AUTO) 41.3 x10^3/uL (0.3-0.8); MONOCYTES % (AUTO) 11.4 % (0.0-13.0); NEUTROPHILS # (AUTO) 316.6 x10^3/uL (2.2-4.8); NEUTROPHILS % (AUTO) 87.4 % (42.0-75.0); PLATELET COUNT 55 X10^3/uL (150.0-450.0); RED BLOOD COUNT 2.67 X10^6/uL (4.7-6.0); RED CELL DISTRIBUTION WIDTH 16.6 % (11.6-16.5)
[2017-12-07 07:39] LABS: WHITE BLOOD COUNT 362.4 X10^3/uL (3.6-10.0)
[2017-12-07 07:44] LABS: ALBUMIN 2.9 g/dL (3.4-5.0); CALCIUM 8.5 mg/dL (8.5-10.1); CARBON DIOXIDE 26.1 mmol/L (21-32); COR CA(FOR HYPOALB) 9.4 mg/dL (8.5-10.1); CREATININE 2.27 mg/dL (0.70-1.30); TOTAL PROTEIN 6.5 g/dL (6.4-8.2)
[2017-12-07] MEDS: COLACE CAP 100 MG PO SCH (08:33)
[2017-12-07] MEDS: FLORINEF PO SCH (08:33)
[2017-12-07] MEDS: HYDREA PO SCH (08:33)
[2017-12-07] MEDS: LANOXIN PO SCH (08:33)
[2017-12-07] MEDS: OxyCONTIN CR 20 MG PO SCH (08:34)
[2017-12-07] MEDS: MAG-OX TAB PO SCH (08:34)
[2017-12-07] MEDS: PriLOSEC PO SCH (08:34)
[2017-12-07] MEDS: MEGACE ORAL SUSP 400 MG/10 ML PO SCH (08:34)
[2017-12-07] MEDS: SINGULAIR TAB 10 MG PO SCH (08:35)
[2017-12-07] MEDS: ZOLOFT PO SCH (08:35)
[2017-12-07] MEDS ORDERED: LOPRESSOR INJ 5 MG AMP IVP PRN ×2 (09:08→14:18)
[2017-12-07] MEDS ORDERED: LANOXIN INJ IVP SCH (10:00)
[2017-12-07] MEDS ORDERED: NS 500 ML IV 500 ML IV ONE (11:18)
[2017-12-07] MEDS ORDERED: ISOPTO ATROPINE SL PRN ×2 (13:54→14:18)
[2017-12-07] MEDS ORDERED: PERCOCET TAB 5/325 MG PO PRN (14:18)
[2017-12-07] MEDS ORDERED: RESTORIL CAP 15 MG PO PRN (14:18)
[2017-12-07] MEDS ORDERED: CARDIZEM INJ 125 MG VIAL 125 MG in NS 100 ML IV 100 ML IV PRN (14:18)
[2017-12-07] MEDS ORDERED: DILAUDID INJ IVP PRN (14:18)
[2017-12-07] MEDS ORDERED: MORPHINE SULFATE INJ 2 MG INJ IVP PRN (14:18)
[2017-12-07] MEDS ORDERED: ZOFRAN INJ 4 MG VIAL IVP PRN (14:18)
[2017-12-07 16:29] VITALS: BP 72/55
[2017-12-07] MEDS ORDERED: MAG-OX TAB PO SCH (21:00)
[2017-12-07] MEDS ORDERED: HYDREA PO SCH (21:00)
[2017-12-07] MEDS ORDERED: COLACE CAP 100 MG PO SCH (21:00)
[2017-12-07] MEDS ORDERED: OxyCONTIN CR 20 MG PO SCH (21:00)
[2017-12-07] MEDS ORDERED: LANOXIN INJ IVP ONE (21:51)
[2017-12-07] MEDS ORDERED: LYRICA CAP 100 MG PO SCH (22:00)
[2017-12-08] MEDS ORDERED: NS 1000 ML 1,000 ML IV SCH (03:00)
[2017-12-08] MEDS ORDERED: PriLOSEC PO SCH (09:00)
[2017-12-08] MEDS ORDERED: LANOXIN INJ IVP SCH (09:00)
[2017-12-08] MEDS ORDERED: ZOLOFT PO SCH (09:00)
[2017-12-08] MEDS ORDERED: LANOXIN PO SCH (09:00)
[2017-12-08] MEDS ORDERED: SINGULAIR TAB 10 MG PO SCH (09:00)
[2017-12-08] MEDS ORDERED: MEGACE ORAL SUSP 400 MG/10 ML PO SCH (09:00)
[2017-12-08] MEDS ORDERED: FLORINEF PO SCH (09:00)
== END 2017-12-07 15:30 | disposition hospice, inpatient (51) | DRG 835 ==
LOC: ER 07:46 → ICU 10:09
PROVIDERS: ADMIT Obstetrics & Gynecology Obstetrics; ATTEND Obstetrics & Gynecology Obstetrics
PROC: 30233N1 Transfusion of Nonautologous Red Blood Cells into Peripheral Vein, Percutaneous Approach (ICD-10-PCS; principal; 2017-12-05)
PROC: 30233R1 Transfusion of Nonautologous Platelets into Peripheral Vein, Percutaneous Approach (ICD-10-PCS; 2017-12-05)
PROC: 30233N1 Transfusion of Nonautologous Red Blood Cells into Peripheral Vein, Percutaneous Approach (ICD-10-PCS; 2017-12-06)
PROC: 30233R1 Transfusion of Nonautologous Platelets into Peripheral Vein, Percutaneous Approach (ICD-10-PCS; 2017-12-07)
DX: C92.02 Acute myeloblastic leukemia, in relapse (principal); D69.6 Thrombocytopenia, unspecified; G89.29 Other chronic pain; C41.9 Malignant neoplasm of bone and articular cartilage, unspecified; I25.10 Atherosclerotic heart disease of native coronary artery without angina pectoris; B96.5 Pseudomonas (aeruginosa) (mallei) (pseudomallei) as the cause of diseases classified elsewhere; R79.1 Abnormal coagulation profile; E11.65 Type 2 diabetes mellitus with hyperglycemia; I48.91 Unspecified atrial fibrillation; Z66 Do not resuscitate
CPT/HCPCS: 36415; 36430; 80053; 80162; 81001; 85014; 85018; 85025; 85610; 86850; 86900; 86901; 86922; 87040; 87077; 87086; 87186; 93005; 93010; 96365; 96374; 96375; 99282; 99285; A4222; P9016; P9035; S0176; J1160; J1170; J1200; J1940; J2270; J2405; J3490

== ENCOUNTER 2017-12-07 15:31 | Inpatient (IN) | payer OTHER ==
[2017-12-07 16:29] VITALS: BP 72/55
[2017-12-07] MEDS ORDERED: MORPHINE SULFATE INJ 4 MG IVP PRN (17:59)
[2017-12-07] MEDS ORDERED: ATIVAN INJ 2 MG VIAL IVP PRN ×2 (18:00→19:00)
[2017-12-07] MEDS ORDERED: DILAUDID INJ IVP PRN ×2 (18:03→19:00)
[2017-12-07 18:11] VITALS: BMI 23.0
== END 2017-12-07 19:50 | DRG 835 ==
LOC: ICU 15:31
PROVIDERS: ADMIT Obstetrics & Gynecology Obstetrics; ATTEND Obstetrics & Gynecology Obstetrics
DX: C92.02 Acute myeloblastic leukemia, in relapse (principal); Z51.5 Encounter for palliative care; C41.9 Malignant neoplasm of bone and articular cartilage, unspecified; D69.6 Thrombocytopenia, unspecified; G89.29 Other chronic pain; I25.10 Atherosclerotic heart disease of native coronary artery without angina pectoris; B96.5 Pseudomonas (aeruginosa) (mallei) (pseudomallei) as the cause of diseases classified elsewhere; R79.1 Abnormal coagulation profile; E11.65 Type 2 diabetes mellitus with hyperglycemia; I48.91 Unspecified atrial fibrillation; Z66 Do not resuscitate